=== PATIENT | female | born 1945 | race Caucasian/White ===

== ENCOUNTER → 2017-10-29 | Outpatient (CLI) | payer MEDICARE, OTHER ==
[~2017-10-29] MED LIST: CALC500T6 PO; CETI10CA8 PO; ESTR0.5T16 PO; HYDR-4225 PO; MEDR2.5T34 PO; METH500T6 PO; OMEG500C5 PO; OMEP-125 PO; SIMV10TA98 PO; VENL37.594 PO; [UNRECOGNIZED DRUG - CODE] PO
[2017-10-29 15:17] LABS: PLATELET COUNT, AUTOMATED 285 K/uL (150-450)
--- NOTE | 2017-10-29 15:32 | EKG ---
FACILITY: [facility] - [place], [place] PATIENT NAME: LAMONT TEJEDA : [id number] MR: [id number] V: [id number] EXAM DATE: ORDERING PHYSICIAN: RYLIE ROBLEDO TECHNOLOGIST: SIMIN Test Reason : PRE-OP Blood Pressure : / mmHG Vent. Rate : 088 BPM Atrial Rate : 088 BPM P-R Int : 188 ms QRS Dur : 086 ms QT Int : 368 ms P-R-T Axes : 066 033 060 degrees QTc Int : 445 ms Sinus rhythm Decreased R wave progression anteriorly Nonspecific ST findings anteriorly Confirmed by ROSEMARY RUTLEDGE ([id number]) on 10/29/2017 3:58:38 PM Referred By: VENKAT Confirmed By:ROSEMARY RUTLEDGE
[2017-10-29 15:33] LABS: INR 1.02
--- NOTE | 2017-10-29 16:13 | RADIOLOGY IMAGING REPORT ---
FACILITY: [facility] - [place] PATIENT NAME: Trang Hitchcock : 1945 MR: [id number] V: [id number] EXAM DATE: ORDERING PHYSICIAN: RLYIE ROBLEDO TECHNOLOGIST: [place] [facility] [place]ang Hitch[place] : 1945 Visit/Account:[id number] Date of Sevice: 10/29/2017 Exam type: CHEST PA AND LAT History: Cough Comparison: None. Findings: There is mild hyperinflation of the lung suazo. There is no evidence of focal infiltrates, pleural effusions or pulmonary edema. There is a small 5 mm nodular density projecting over the right lung b ase. Cardiac silhouette is normal in size. There is a gentle S-shaped scoliosis of the thoracolumba r spine IMPRESSION: 1. Hyperinflation lung suazo although no evidence of focal infiltrates There is a 5 mm nodular density projecting over the right lung base. Short-term interval follow-up c hest or chest CT recommended Report Dictated By: Michelle Rodriguez MD at 10/29/2017 4:06 PM Report E-Signed By: Michelle Rodriguez MD at 10/29/2017 4:08 PM WSN:[email or web address]
== END ==
LOC: LAB 14:40
PROVIDERS: ATTEND Family Medicine
DX: Z01.810 Encounter for preprocedural cardiovascular examination (principal); Z01.812 Encounter for preprocedural laboratory examination; Z01.818 Encounter for other preprocedural examination; E04.9 Nontoxic goiter, unspecified; R91.8 Other nonspecific abnormal finding of lung field
CPT/HCPCS: 36415; 71046; 82310; 82374; 82435; 82565; 82947; 84132; 84295; 84443; 84520; 85025; 85610; 85730; 93005

== ENCOUNTER 2017-11-14 19:37 | Emergency (ER) | payer MEDICARE, OTHER ==
[2017-11-14] MEDS ORDERED: CEFU500T10 PO (19:44)
[2017-11-14] MEDS ORDERED: HYDR-4309 PO (19:44)
--- NOTE | 2017-11-14 19:44 | ER Report ---
History and Physical Time Seen By MD: 19:42 HPI/ROS CHIEF COMPLAINT: Facial swelling, itching HISTORY OF PRESENT ILLNESS: 72-year-old female presents ambulatory to the ER with concerns of her facial swelling and itching. She underwent thyroid surgery yesterday. She reports her blood pressure was elevated. May give her several different medications to bring down her blood pressure. She thinks she is reacting to one of those. She took Benadryl 25 mg around 3 PM today with no improvement. She took another 50 mg of Benadryl approximately 45 minutes prior to her arrival here. She notes no throat swelling sensation. She denies any difficulty breathing. Her eyes are nearly swollen shut on arrival. Her facies flushed. She does have a history of allergies and takes hydroxyzine and Zyrtec frequently. REVIEW OF SYSTEMS: Respiratory: No cough, no dyspnea. Cardiovascular: No chest pain, no palpitations. Gastrointestinal: No vomiting, no abdominal pain. Musculoskeletal: No back pain. Allergies: Coded Allergies: Sulfa (Sulfonamide Antibiotics) (Verified Allergy, Unknown, UNKNOWN, ) adhesive (Verified Allergy, Unknown, 11/14/17) Home Meds Active Scripts Prednisone 10 Mg Tab (PREDNISONE 10 MG TAB) 10 Mg Tablet, 10 MG PO QDAY for prevent allergic reaction, #6 TAB 2 by mouth daily 2 days, then one tablet by mouth daily 2 days Prov:CASS GU DO 11/14/17 Reported Medications Hydrocodone Bit/Acetaminophen (NORCO 5-325 TABLET) 1 Each Tablet, 1-2 TAB PO Q4H Y for PAIN, TAB 11/14/17 Cefuroxime Axetil (CEFUROXIME) 500 Mg Tablet, 500 MG PO BID, #20 TAB 11/14/17 Hydroxyzine Hcl (HYDROXYZINE HCL) 25 Mg Tablet, 25 MG PO 06/01/17 Cetirizine Hcl (ZYRTEC) 10 Mg Capsule, 10 MG PO QDAY, CAPSULE 06/01/17 Simethicone (GAS RELIEF) 125 Mg Capsule, 125 MG PO DAILY, CAPSULE 01/26/16 Methylcellulose (FIBER) 500 Mg Tablet, 500 MG PO DAILY 01/26/16 [place]-3 Fatty Acids (FISH OIL) 500 Mg Capsule.dr, 1000 MG PO DAILY 01/26/16 Omeprazole (OMEPRAZOLE) 20 Mg Capsule.dr, 1 CAP PO QDAY, CAP 01/26/16 Calcium Carbonate (CALCIUM) 500 Mg Tablet, 500 MG PO BID 01/26/16 Simvastatin (SIMVASTATIN) 10 Mg Tablet, 10 MG PO HS, TAB 01/26/16 Medroxyprogesterone Acetate (MEDROXYPROGESTERONE ACETATE) 2.5 Mg Tablet, 2.5 MG PO DAILY 01/26/16 Estradiol (ESTRADIOL) 0.5 Mg Tablet, 0.5 MG PO DAILY 01/26/16 Discontinued Reported Medications Venlafaxine Hcl (EFFEXOR XR) 37.5 Mg Cap.er.24h, 37.5 MG PO QDAY 01/26/16 Reviewed Nurses Notes: Yes Old Medical Records Reviewed: Yes Hx Smoking: No Smoking Status: Former Smoker Hx Alcohol Use: Yes Constitutional Vital Sign - Last 24 Hours 11/14/17 19:44 Pulse 82 Resp 14 B/P (MAP) 147/94 Pulse Ox 92 O2 Delivery Room Air Physical Exam Vital signs stable, afebrile, pulse ox normal General Appearance: The patient is alert, has no immediate need for airway protection and no current signs of toxicity. Mild distress, facial flushing and edema. HEENT: Pupils equal and round no injection. TMs normal, oropharynx without edema. Respiratory: Chest is non tender, lungs are clear to auscultation. No wheezing or rails, there is flushing to the upper chest wall area and neck Cardiac: regular rate and rhythm Gastrointestinal: Abdomen is soft and non tender, no masses, bowel sounds normal. Musculoskeletal: Neck: Neck is supple and non tender. There is a surgical scar at the sternal notch with Steri-Strips intact. There is no induration or fluctuance to the local tissues. Extremities have full range of motion and are non tender. No edema Skin: No rashes or lesions. DIFFERENTIAL DIAGNOSIS: After history and physical exam differential diagnosis was considered for allergic reaction, anaphylaxis, angioedema, facial cellulitis , postoperative infection Medical Decision Making ED Course/Re-evaluation Clinical Indication for ER IV: Hydration, IV Access ED Course Patient was admitted to an examination room. H&P was done. The differential diagnoses was considered. On clinical examination. Patient has no oral pharyngeal swelling or edema. She does have facial flushing and erythema. She has facial edema. She is treated with IV Solu-Medrol and Pepcid by mouth. Patient observed for over one hour. She reports her symptoms are improving. Her facial edema and redness seem to be decreasing. She be discharged home on a prednisone taper 20 times to 102. She is advised Benadryl 3 times a day 25 mg as needed. Patient cautioned return to the ER for any worsening. Decision to Disposition Date: Nov 14, 2017 Decision to Disposition Time: 20:29 Depart Departure Latest Vital Signs Vital Signs Date Time Temp Pulse Resp B/P (MAP) Pulse Ox O2 Delivery O2 Flow Rate FiO2 11/14/17 19:44 82 14 147/94 92 Room Air Impression: Primary Impression: Allergic reaction Additional Impressions: Facial swelling Status post thyroid surgery Condition: Improved Disposition: HOME OR SELF-CARE New Scripts Prednisone 10 Mg Tab (PREDNISONE 10 MG TAB) 10 Mg Tablet 10 MG PO QDAY for prevent allergic reaction, #6 TAB 2 by mouth daily 2 days, then one tablet by mouth daily 2 days Prov: CASS GU DO 11/14/17 Patient Instructions: General Allergic Reaction (ED) Additional Instructions: Follow-up with your primary care or surgeon if unimproved in 2-3 days Return to the ER for any worsening Problem Qualifiers Primary Impression: Allergic reaction Encounter type: initial encounter Qualified Codes: T78.40XA - Allergy, unspecified, initial encounter CASS GU DO Nov 14, 2017 19:44
[2017-11-14] MEDS ORDERED: diphenhydrAMINE 50 MG/ML VIAL IVP ONE (19:50)
[2017-11-14] MEDS ORDERED: FAMOTIDINE 20 MG TAB PO ONE (19:50)
[2017-11-14] MEDS ORDERED: methylPREDNIS SUCC 125 MG/2ML IVP ONE (19:50)
[2017-11-14] MEDS ORDERED: PRED-1 PO (20:32)
[2017-11-14 20:45] VITALS: BP 124/82
[2017-11-16] MEDS ORDERED: METH125V13 IM (13:54)
== END 2017-11-14 20:50 | disposition home or self-care (01) ==
LOC: ER 20:00
DX: T78.40XA Allergy, unspecified, initial encounter (principal)
CPT/HCPCS: 96374; 99284; A9270; J2930

== ENCOUNTER 2017-11-17 19:09 | Observation (INO) | payer MEDICARE, OTHER ==
[~2017-11-17] VITALS: Ht 167.6 cm; Wt 76.2 kg
[~2017-11-17 19:09] MED LIST changes: +CEFU500T10 PO; +HYDR-4309 PO; +METH125V13 IM; +PRED-1 PO
--- NOTE | 2017-11-17 19:19 | ER Report ---
History and Physical Time Seen By MD: 19:19 HPI/ROS CHIEF COMPLAINT: Facial swelling HISTORY OF PRESENT ILLNESS: This is a 72-year-old female who presents to the emergency department for facial swelling. Patient was seen in the ED for possible allergic reaction on of last week and also seen by Dr. Roger for follow-up evaluation. Patient is status post thyroidectomy 4 days. Patient states she was given a dose of Ceftin and had allergic reaction. Patient ended up coming to the emergency department for concerns of an allergic reaction. Patient was given some Solu-Medrol and a short course of steroids. Patient was then seen in Dr. Roger's office [place] she still had facial swelling he did give her an injection of Solu-Medrol. Patient states that since then she has been getting worse and feels that she has developed an allergic reaction to the steroids as well. Patient states that she does have some fullness in her cheeks more on the right than the left she does have periorbital edema, as well as the right side of her face and into the right side of her neck. Patient denies chest pain or shortness of breath she does however state that she has had some wheezing and did use her MDI. There is no audible wheezing or signs of respiratory compromise at this time. The surgical site looks intact, no erythema or signs of infection. Steri-Strips are intact. Patient denies fevers, chills, nausea, vomiting, diarrhea. Patient states that she has taken Benadryl this morning and last dose of 25 mg Benadryl 4:00 this evening. REVIEW OF SYSTEMS: Constitutional: No fever, no chills. Eyes: No discharge. ENT: No sore throat. Cardiovascular: No chest pain, no palpitations. Respiratory: As above. Gastrointestinal: No abdominal pain, no vomiting. Genitourinary: No hematuria. Musculoskeletal: No back pain. Skin: As above. Neurological: No headache. Allergies: Coded Allergies: Sulfa (Sulfonamide Antibiotics) (Verified Allergy, Unknown, UNKNOWN, ) adhesive (Verified Allergy, Unknown, 11/14/17) cefuroxime (Verified Allergy, Unknown, facial swelling, 11/16/17) prednisone (Verified Allergy, Unknown, 11/17/17) Home Meds Active Scripts Prednisone 10 Mg Tab (PREDNISONE 10 MG TAB) 10 Mg Tablet, 10 MG PO QDAY for prevent allergic reaction, #6 TAB 2 by mouth daily 2 days, then one tablet by mouth daily 2 days Prov:BRITTANIECASS DO 11/14/17 Reported Medications Hydrocodone Bit/Acetaminophen (NORCO 5-325 TABLET) 1 Each Tablet, 1-2 TAB PO Q4H Y for PAIN, TAB 11/14/17 Cefuroxime Axetil (CEFUROXIME) 500 Mg Tablet, 500 MG PO BID, #20 TAB 11/14/17 Hydroxyzine Hcl (HYDROXYZINE HCL) 25 Mg Tablet, 25 MG PO 06/01/17 Cetirizine Hcl (ZYRTEC) 10 Mg Capsule, 10 MG PO QDAY, CAPSULE 06/01/17 Simethicone (GAS RELIEF) 125 Mg Capsule, 125 MG PO DAILY, CAPSULE 01/26/16 Methylcellulose (FIBER) 500 Mg Tablet, 500 MG PO DAILY 01/26/16 [place]-3 Fatty Acids (FISH OIL) 500 Mg Capsule.dr, 1000 MG PO DAILY 01/26/16 Omeprazole (OMEPRAZOLE) 20 Mg Capsule.dr, 1 CAP PO QDAY, CAP 01/26/16 Calcium Carbonate (CALCIUM) 500 Mg Tablet, 500 MG PO BID 01/26/16 Simvastatin (SIMVASTATIN) 10 Mg Tablet, 10 MG PO HS, TAB 01/26/16 Medroxyprogesterone Acetate (MEDROXYPROGESTERONE ACETATE) 2.5 Mg Tablet, 2.5 MG PO DAILY 01/26/16 Estradiol (ESTRADIOL) 0.5 Mg Tablet, 0.5 MG PO DAILY 01/26/16 Discontinued Reported Medications Venlafaxine Hcl (EFFEXOR XR) 37.5 Mg Cap.er.24h, 37.5 MG PO QDAY 01/26/16 Past Medical/Surgical History Burns has a past medical and surgical history of hypercholesterolemia, GERD, ankle fracture, wears glasses, hard of hearing, appendectomy, C-sections 2, anxiety, depression, tubal ligation, bunionectomy. Reviewed Nurses Notes: Yes Hx Smoking: No Smoking Status: Former Smoker Hx Substance Use Disorder: No Hx Alcohol Use: Yes Constitutional Vital Sign - Last 24 Hours 11/17/17 11/17/17 11/17/17 11/17/17 19:13 19:23 19:24 19:39 Temp 98.4 Pulse 78 81 77 Resp 16 B/P (MAP) 167/100 (122) 167/100 Pulse Ox 95 94 95 O2 Delivery Room Air 11/17/17 11/17/17 11/17/17 11/17/17 19:54 20:09 20:19 20:24 Pulse 71 75 75 B/P (MAP) 159/92 (114) Pulse Ox 96 98 96 11/17/17 11/17/17 11/17/17 11/17/17 20:29 20:34 20:40 20:49 Pulse 72 68 B/P (MAP) 165/94 (117) Pulse Ox 96 97 95 11/17/17 11/17/17 11/17/17 11/17/17 21:16 21:19 21:20 21:34 Pulse 74 68 B/P (MAP) 172/98 (122) 176/94 (121) Pulse Ox 97 95 Physical Exam General Appearance: The patient is alert, has no immediate need for airway protection and no signs of toxicity. Eyes: Pupils equal and round no pallor or injection. ENT, Mouth: Mucous membranes are moist. Fullness to the tongue, mild erythema to soft palate and oropharynx, uvula midline. No drooling. No signs of occlusion. Respiratory: There are no retractions, lungs are clear to auscultation, no wheezing or stridorous sounds. Cardiovascular: Regular rate and rhythm, no murmurs, clicks or rubs. Gastrointestinal: Abdomen is soft and non tender, no masses, bowel sounds normal. Neurological: Alert and oriented X4, moving all extremities, no focal neuro deficits, following all commands. Skin: Warm and dry, no rashes. Crepitus and popping to both sides of the neck, more on the right neck and face. Periorbital edema, more notable on the right. Surgical site is intact, no drainage, covered by steri strips. Musculoskeletal: Neck is supple non tender. Extremities are nontender, nonswollen and have full range of motion. DIFFERENTIAL DIAGNOSIS: After history and physical exam differential diagnosis was considered for but not limited to angioedema, allergic reaction, postsurgical complication and cellulitis. Medical Decision Making Data Points Result Diagram: 11/17/17200111/17/172001 Laboratory Hematology Test 11/17/17 20:02 Red Blood Count 5.16 M/uL (4.17-5.56) Mean Corpuscular Volume 87.1 fL (80.0-96.0) Mean Corpuscular Hemoglobin 30.0 pg (26.0-33.0) Mean Corpuscular Hemoglobin Concent 34.5 g/dL (32.0-36.0) Red Cell Distribution Width 13.7 % (11.5-14.5) Mean Platelet Volume 7.9 fL (7.2-11.1) Neutrophils (%) (Auto) 78.5 % (39.4-72.5) Lymphocytes (%) (Auto) 12.7 % (17.6-49.6) Monocytes (%) (Auto) 8.3 % (4.1-12.4) Eosinophils (%) (Auto) 0.1 % (0.4-6.7) Basophils (%) (Auto) 0.4 % (0.3-1.4) Nucleated RBC Relative Count (auto) 0.0 /100WBC Neutrophils # (Auto) 10.0 K/uL (2.0-7.4) Lymphocytes # (Auto) 1.6 K/uL (1.3-3.6) Monocytes # (Auto) 1.1 K/uL (0.3-1.0) Eosinophils # (Auto) 0.0 K/uL (0.0-0.5) Basophils # (Auto) 0.0 K/uL (0.0-0.1) Nucleated RBC Absolute Count (auto) 0.00 K/uL Sodium Level 141 mmol/L (137-145) Potassium Level 4.1 mmol/L (3.5-5.0) Chloride Level 100 mmol/L (98-107) Carbon Dioxide Level 27 mmol/L (22-31) Blood Urea Nitrogen 19 mg/dl (7-18) Creatinine 1.00 mg/dl (0.52-1.04) Glomerular Filtration Rate Calc 54.8 Random Glucose 113 mg/dl (75-110) Calcium Level 9.4 mg/dl (8.4-10.2) Total Bilirubin 0.4 mg/dl (0.2-1.3) Aspartate Amino Transf (AST/SGOT) 27 U/L (0-35) Alanine Aminotransferase (ALT/SGPT) 33 U/L (0-56) Alkaline Phosphatase 63 U/L (0-126) Total Protein 7.2 gm/dl (6.3-8.2) Albumin 3.9 g/dl (3.5-5.0) Chemistry Test 11/17/17 20:02 White Blood Count 12.7 k/uL (4.5-11.0) Red Blood Count 5.16 M/uL (4.17-5.56) Hemoglobin 15.5 g/dL (12.0-16.0) Hematocrit 45.0 % (34.0-47.0) Mean Corpuscular Volume 87.1 fL (80.0-96.0) Mean Corpuscular Hemoglobin 30.0 pg (26.0-33.0) Mean Corpuscular Hemoglobin Concent 34.5 g/dL (32.0-36.0) Red Cell Distribution Width 13.7 % (11.5-14.5) Platelet Count 322 K/uL (150-450) Mean Platelet Volume 7.9 fL (7.2-11.1) Neutrophils (%) (Auto) 78.5 % (39.4-72.5) Lymphocytes (%) (Auto) 12.7 % (17.6-49.6) Monocytes (%) (Auto) 8.3 % (4.1-12.4) Eosinophils (%) (Auto) 0.1 % (0.4-6.7) Basophils (%) (Auto) 0.4 % (0.3-1.4) Nucleated RBC Relative Count (auto) 0.0 /100WBC Neutrophils # (Auto) 10.0 K/uL (2.0-7.4) Lymphocytes # (Auto) 1.6 K/uL (1.3-3.6) Monocytes # (Auto) 1.1 K/uL (0.3-1.0) Eosinophils # (Auto) 0.0 K/uL (0.0-0.5) Basophils # (Auto) 0.0 K/uL (0.0-0.1) Nucleated RBC Absolute Count (auto) 0.00 K/uL Glomerular Filtration Rate Calc 54.8 Calcium Level 9.4 mg/dl (8.4-10.2) Total Bilirubin 0.4 mg/dl (0.2-1.3) Aspartate Amino Transf (AST/SGOT) 27 U/L (0-35) Alanine Aminotransferase (ALT/SGPT) 33 U/L (0-56) Alkaline Phosphatase 63 U/L (0-126) Total Protein 7.2 gm/dl (6.3-8.2) Albumin 3.9 g/dl (3.5-5.0) EKG/Imaging Imaging Location: [facility] Patient: Trang Hitchcock : 1945 Visit/Account:[id number] Date of Sevice: 11/17/2017 CHEST PA AND LATERAL 11/17/2017 9:30 PM. INDICATION: Possible pneumothorax. COMPARISON: Same-day neck CT. FINDINGS: Lungs are overall hyperexpanded. No definite suspicious focal consolidation. No apparent pleural effusion. No definite pneumothorax. Extensive pneumomediastinum as well as soft tissue emphysema in the neck and chest. IMPRESSION: 1. No radiographically apparent pneumothorax. 2. Pneumomediastinum and extensive soft tissue emphysema in the chest and neck. Given reported recent thyroidectomy, tracheal injury is a consideration. 3. Chronic hyperexpansion. Dr. Bautista discussed this case with SHAY GONZALEZ on 11/17/2017 10:09 PM. Report Dictated By: Flaco Bautista MD at 11/17/2017 9:58 PM Report E-Signed By: Flaco Bautista MD at 11/17/2017 10:11 PM WSN:[id number] Location: [facility] Patient: Trang Hitchcock : 1945 Visit/Account:[id number] Date of Sevice: 11/17/2017 ADDENDUM #1 Upon further review. There may be a small rent in the anterior left trachea, in the area of the previous thyroidectomy. This could be the cause for the pneumomediastinum. This is seen on image #58 on series 2. The small apical pneumothoraces could be overlying pneumomediastinum and not actual pneumothoraces however this is not definitive. These findings were discussed with Shay Gonzalez by Dr. Archer. Report Dictated By: Andrew Martinez at 11/17/2017 10:15 PM Report E-Signed By: Andrew Martinez at 11/17/2017 10:[address] OF THE NECK WITH CONTRAST INDICATION: Neck and face swelling. Status post thyroidectomy. COMPARISON: non available TECHNIQUE: Axial CT images was obtained through the neck soft tissues after administration of 75 mL Isovue-370 IV contrast. Reformatted coronal and sagittal images were reviewed. One of the following dose optimization techniques was utilized in the performance of this exam: Automated exposure control; adjustment of the mA and/ or kV according to the patient's size; or use of an iterative reconstruction technique. Specific details can be referenced in the facility's radiology CT exam operational policy. FINDINGS: There is significant diffuse subcutaneous air seen throughout the neck from the apex of the chest to the orbits. Small amount of air seen within the right orbit there is significant amount of pneumomediastinum seen in the visualized upper mediastinum. The visualized lungs show small bilateral pneumothoraces. Soft tissues of the neck show no other focal abnormality such as fluid collections or masses. The retropharyngeal soft tissues are unremarkable besides the subcutaneous air. The visualized brain is unremarkable. The vasculature is unremarkable. Bony structures show no acute abnormality or discrete lesions. IMPRESSION: 1. A severe amount of subcutaneous air throughout the neck extending from the upper chest to the level of the orbits with small amount in the right orbit. There is also pneumomediastinum and small bilateral pneumothoraces in the apex of the lungs. I called report to SHAY GONZALEZ at 11/17/2017 9:28 PM. Report Dictated By: Andrew Martinez at 11/17/2017 9:19 PM Report E-Signed By: Andrew Martinez at 11/17/2017 9:30 PM WSN:[id number] ED Course/Re-evaluation Clinical Indication for ER IV: IV Access ED Course The patient was admitted to room. A history physical were obtained. Differential diagnoses were considered. An IV was started. A CBC, CMP were obtained. Lab studies unremarkable. 25 mg IV Benadryl and 20 mg IV famotidine were given. I did offer the patient some slight Medrol however she states she is concerned that the steroids have caused her symptoms to worsen over the last several days and declined the slight Medrol. A CT of the neck was obtained. CT of the neck is showing a severe amount of subcutaneous air throughout the neck extending from the upper chest to the level of the orbits with small amount in the right orbit. There is also a pneumomediastinum There is an addendum to the initial CT saying that there may be a small rent in the anterior left trachea, in the area of the previous thyroidectomy. I did review these results with the patient and her . I did a two-view chest x-ray as well I did get a call from the radiologist that said he was not convinced that the patient had bilateral pneumothoraces he thinks that this is a large pneumomediastinum. I did review these results with the patient and her . I did explain to them that this is concerning and I'll contact Dr. Anaya as noted below. The patient has been admitted to a surgical bed for pneumomediastinum, subcutaneous air, status post thyroidectomy. 11/17/2017 10:28:55 pm his peak with Dr. Anaya regarding the patient's CT results he is going to come in and talk to the patient and evaluate for possible admission. I did review this with the patient. 11/17/2017 10:41:[address] Anaya is here for patient evaluation. 11/17/2017 11:08:[address] Anaya has agreed to admit the patient to the hospital. Patient is in agreement with this. Decision to Disposition Date: Nov 17, 2017 Decision to Disposition Time: 23:08 Depart Departure Latest Vital Signs Vital Signs Date Time Temp Pulse Resp B/P (MAP) Pulse Ox O2 Delivery O2 Flow Rate FiO2 11/17/17 21:34 68 95 11/17/17 21:20 176/94 (121) 11/17/17 19:23 98.4 16 Room Air Impression: Primary Impression: Pneumomediastinum Additional Impressions: Subcutaneous air Periorbital edema Condition: Improved Disposition: Admitted from ER Problem Qualifiers Additional Impressions: Subcutaneous air Encounter type: initial encounter Qualified Codes: T79.7XXA - Traumatic subcutaneous emphysema, initial encounter SHAY GONZALEZP-BC Nov 17, 2017 19:19
[2017-11-17] MEDS ORDERED: FAMOTIDINE(*) 20MG/50ML PREMIX 50 ML IVPB ONE (20:00)
[2017-11-17] MEDS ORDERED: diphenhydrAMINE 50 MG/ML VIAL IVP ONE (20:00)
[2017-11-17] MEDS ORDERED: IOPAMIDOL 76% 75 ML INFUS BTL 75 ML ONE (20:07)
[2017-11-17 20:10] LABS: PLATELET COUNT, AUTOMATED 322 K/uL (150-450)
--- NOTE | 2017-11-17 21:34 | RADIOLOGY IMAGING REPORT ---
FACILITY: [facility] [place] PATIENT NAME: Trang Hitchcock : 1945 MR: [id number] V: [id number] EXAM DATE: ORDERING PHYSICIAN: SHAY GONZALEZ TECHNOLOGIST: Location: [facility] Patient: Trang Hitchcock : 1945 Visit/Account:[id number] Date of Sevice: 11/17/2017 ADDENDUM #1 Upon further review. There may be a small rent in the anterior left trachea, in the area of the previ ous thyroidectomy. This could be the cause for the pneumomediastinum. This is seen on image #58 on se enrike 2. The small apical pneumothoraces could be overlying pneumomediastinum and not actual pneumotho races however this is not definitive. These findings were discussed with Shya Gonzalez by Dr. Archer. Report Dictated By: Andrew Martinez at 11/17/2017 10:15 PM Report E-Signed By: Andrew Martinez at 11/17/2017 10:[address] OF THE NECK WITH CONTRAST INDICATION: Neck and face swelling. Status post thyroidectomy. COMPARISON: non available TECHNIQUE: Axial CT images was obtained through the neck soft tissues after administration of 75 mL I sovue-370 IV contrast. Reformatted coronal and sagittal images were reviewed. One of the following dose optimization techniques was utilized in the performance of this exam: Autom ated exposure control; adjustment of the mA and/or kV according to the patient's size; or use of an i terative reconstruction technique. Specific details can be referenced in the facility's radiology C T exam operational policy. FINDINGS: There is significant diffuse subcutaneous air seen throughout the neck from the apex of the chest to the orbits. Small amount of air seen within the right orbit there is significant amount of pneumomedi astinum seen in the visualized upper mediastinum. The visualized lungs show small bilateral pneumotho races. Soft tissues of the neck show no other focal abnormality such as fluid collections or masses. The ret ropharyngeal soft tissues are unremarkable besides the subcutaneous air. The visualized brain is unre markable. The vasculature is unremarkable. Bony structures show no acute abnormality or discrete lesi ons. IMPRESSION: 1. A severe amount of subcutaneous air throughout the neck extending from the upper chest to the leve l of the orbits with small amount in the right orbit. There is also pneumomediastinum and small bilat eral pneumothoraces in the apex of the lungs. I called report to SHAY GONZALEZ at 11/17/2017 9:28 PM. Report Dictated By: Andrew Martinez at 11/17/2017 9:19 PM Report E-Signed By: Andrew Martinez at 11/17/2017 9:30 PM WSN:[id number]
--- NOTE | 2017-11-17 22:16 | RADIOLOGY IMAGING REPORT ---
FACILITY: [facility] PATIENT NAME: Trang Hitchcock : 1945 MR: [id number] V: [id number] EXAM DATE: ORDERING PHYSICIAN: JAMES GONZALEZ TECHNOLOGIST: Location: [facility] Patient: Trang Hitchcock : 1945 Visit/Account:[id number] Date of Sevice: 11/17/2017 CHEST PA AND LATERAL 11/17/2017 9:30 PM. INDICATION: Possible pneumothorax. COMPARISON: Same-day neck CT. FINDINGS: Lungs are overall hyperexpanded. No definite suspicious focal consolidation. No apparent pleural effusion. No definite pneumothorax. Extensive pneumomediastinum as well as soft tissue emph ysema in the neck and chest. IMPRESSION: 1. No radiographically apparent pneumothorax. 2. Pneumomediastinum and extensive soft tissue emphysema in the chest and neck. Given reported rece nt thyroidectomy, tracheal injury is a consideration. 3. Chronic hyperexpansion. Dr. Bautista discussed this case with JAMES GONZALEZ on 11/17/2017 10:09 PM. Report Dictated By: Flaco Bautista MD at 11/17/2017 9:58 PM Report E-Signed By: Flaco Bautista MD at 11/17/2017 10:11 PM WSN:[email or web address]
--- NOTE | 2017-11-17 23:33 | Post Operative Progress Note ---
Post Operative Progress Note Date: Nov 17, 2017 Time: 23:32 Surgeon: ashleigh Anesthesia: local Pre-Op Diagnosis: subcutaneous emphysema secondary to tracheal injury Post-Op Diagnosis: same Procedure(s): wound exploration ELIDA FAYE MD Nov 17, 2017 23:33
--- NOTE | 2017-11-17 23:43 | General Surgery 1 H&P ---
History of Present Illness Chief Complaint facial swelling History of Present Illness 72 yo female who underwent a thyroidectomy 4 days ago. post op she had some sensation of difficulty breathing and spent the night. she was then discharged but subsequently developed increasing swelling in the neck and face. it got quite a bit more pronounced today and she returned to the ed. ct suggest a tracheal injury on the left with subcutaneous and mediastinal emphysema. pt has no significant pain. no shortness of breath. no difficulty swallowing. History Other Past Surgeries: thyroidectomy, appendectomy and c section Home Meds Active Scripts Prednisone 10 Mg Tab (PREDNISONE 10 MG TAB) 10 Mg Tablet, 10 MG PO QDAY for prevent allergic reaction, #6 TAB 2 by mouth daily 2 days, then one tablet by mouth daily 2 days Prov:CASS GU DO 11/14/17 Reported Medications Hydrocodone Bit/Acetaminophen (NORCO 5-325 TABLET) 1 Each Tablet, 1-2 TAB PO Q4H Y for PAIN, TAB 11/14/17 Cefuroxime Axetil (CEFUROXIME) 500 Mg Tablet, 500 MG PO BID, #20 TAB 11/14/17 Hydroxyzine Hcl (HYDROXYZINE HCL) 25 Mg Tablet, 25 MG PO 06/01/17 Cetirizine Hcl (ZYRTEC) 10 Mg Capsule, 10 MG PO QDAY, CAPSULE 06/01/17 Simethicone (GAS RELIEF) 125 Mg Capsule, 125 MG PO DAILY, CAPSULE 01/26/16 Methylcellulose (FIBER) 500 Mg Tablet, 500 MG PO DAILY 01/26/16 [place]-3 Fatty Acids (FISH OIL) 500 Mg Capsule.dr, 1000 MG PO DAILY 01/26/16 Omeprazole (OMEPRAZOLE) 20 Mg Capsule.dr, 1 CAP PO QDAY, CAP 01/26/16 Calcium Carbonate (CALCIUM) 500 Mg Tablet, 500 MG PO BID 01/26/16 Simvastatin (SIMVASTATIN) 10 Mg Tablet, 10 MG PO HS, TAB 01/26/16 Medroxyprogesterone Acetate (MEDROXYPROGESTERONE ACETATE) 2.5 Mg Tablet, 2.5 MG PO DAILY 01/26/16 Estradiol (ESTRADIOL) 0.5 Mg Tablet, 0.5 MG PO DAILY 01/26/16 Discontinued Reported Medications Venlafaxine Hcl (EFFEXOR XR) 37.5 Mg Cap.er.24h, 37.5 MG PO QDAY 01/26/16 Allergies: Coded Allergies: Sulfa (Sulfonamide Antibiotics) (Verified Allergy, Unknown, UNKNOWN, ) adhesive (Verified Allergy, Unknown, 11/14/17) cefuroxime (Verified Allergy, Unknown, facial swelling, 11/16/17) prednisone (Verified Allergy, Unknown, 11/17/17) Family History: FH: heart failure FATHER, , Age:69 FH: hypertension MOTHER, , Age:85 Review of Systems History of Hypertension?: No History of Diabetes?: No History of DVT?: No Obstructive Sleep Apnea?: No History of Liver Disease?: No History of Kidney Disease?: No Constitutional: No Fever, No Weight Loss, No Weight Gain, No Chills, No Night Sweats, No Other Respiratory: Denies Shortness of Breath, Denies Other Cardiovascular: Denies Chest Pain, Denies Other : Denies Dysuria, Denies Other Exam Vital Signs Date Time Temp Pulse Resp B/P (MAP) Pulse Ox O2 Delivery O2 Flow Rate FiO2 11/17/17 23:00 187/111 (136) 11/17/17 22:54 74 94 11/17/17 19:23 98.4 16 Room Air General Appearance: Alert, Awake, No Acute Distress ENT: Other (she has facial swelling with subcutaneous emphysema into the eyelids) Neck: Other (swollen with subcutaneous emphysema. no erythema) Medical Decision Making Data Points Result Diagram: 11/17/17200111/17/172001 Assessment and Plan Problems: (1) Subcutaneous air Status: Acute Assessment & Plan: she appears to have subq and pneumomediastinum secondary to tracheal injury. discussed options. open wound and let air leak out and have it close secondarily. explore wound under general and try to identify and suture wound closed. or transfer her. she opts for opening wound and letting wound heal secondarily. Copies to: KALINA ESPARZA JR, MD; ELIDA FAYE MD Venous Thromboembolism Antithrombotics Is Pt On Any Antithrombotics?: No Problem Qualifiers (1) Subcutaneous air: Encounter type: initial encounter Qualified Codes: T79.7XXA - Traumatic subcutaneous emphysema, initial encounter ELIDA FAYE MD Nov 17, 2017 23:43
[2017-11-17] MEDS ORDERED: FLUSH 10 ML SYR IVP PRN (23:45)
[2017-11-17] MEDS ORDERED: ACETAMINOPHEN 325 MG TAB PO PRN (23:45)
[2017-11-17] MEDS ORDERED: LISD30PT PO (23:56)
[2017-11-18 00:12] VITALS: BP 160/110
[2017-11-18] MEDS ORDERED: CALC-634 PO (01:07)
[2017-11-18 02:49] VITALS: BP 154/82
--- NOTE | 2017-11-18 03:59 | OPERATIVE REPORT 1 ---
EVENT DATE: November 17, 2017 SURGEON: Wilton Anaya MD ANESTHESIA: Local. PREOPERATIVE DIAGNOSIS Tracheal injury with subcutaneous emphysema. POSTOPERATIVE DIAGNOSIS Tracheal injury with subcutaneous emphysema. PROCEDURE PERFORMED Wound exploration. PROCEDURE Patient was placed in the reclining position with her head hyperextended. The Steri-strips in the previously placed suture were removed. The area was then prepped and draped in sterile fashion. Skin was anesthetized with 1% Xylocaine with epinephrine. The skin was teased open. The subcutaneous tissue was opened with scissors. We then had a bales of air. We then opened the strap muscles in the midline, and there was an air return after that. We had the wound open down to the level of the trachea. At this point, the procedure was terminated. We placed a gauze over the open wound and taped it in position. MTDJelani
[2017-11-18 08:16] VITALS: BP 161/94
--- NOTE | 2017-11-18 08:55 | General Surgery Progress Note ---
Subjective Progress Notes Subjective no complaints of pain. she can hear the air leak Physical Exam Vital Signs Date Time Temp Pulse Resp B/P (MAP) Pulse Ox O2 Delivery O2 Flow Rate FiO2 11/18/17 08:16 98.4 81 18 161/94 (116) 91 Room Air General Appearance: Alert, Awake Neck: Other (wound open, swelling in neck and face decreased) Result Diagram: 11/17/17200111/17/172001 Assessment and Plan Problems: (1) Subcutaneous air Status: Acute Assessment & Plan: she appears to have subq and pneumomediastinum secondary to tracheal injury. discussed options. open wound and let air leak out and have it close secondarily. explore wound under general and try to identify and suture wound closed. or transfer her. she opts for opening wound and letting wound heal secondarily. 11/18/17 doing well. hopefully home later today Exam Sepsis Risk: No Definite Risk Problem Qualifiers (1) Subcutaneous air: Encounter type: initial encounter Qualified Codes: T79.7XXA - Traumatic subcutaneous emphysema, initial encounter ELIDA FAYE MD Nov 18, 2017 08:55
[2017-11-18] MEDS ORDERED: MEDROXYPROGESTERONE ACETATE PO SCH (09:00)
[2017-11-18] MEDS ORDERED: hydrOXYzine 25 MG TAB PO SCH (09:00)
[2017-11-18] MEDS: CEPHALEXIN MONO 500 MG CAP PO SCH ×2 (09:26→14:43)
[2017-11-18 13:02] VITALS: Ht 167.6 cm; Wt 76.2 kg
[2017-11-18 13:38] VITALS: BP 156/92
--- NOTE | 2017-11-18 16:40 | General Surgery Progress Note ---
Subjective Progress Notes Subjective no complaints of pain or shortness of breath Physical Exam Vital Signs Date Time Temp Pulse Resp B/P (MAP) Pulse Ox O2 Delivery O2 Flow Rate FiO2 11/18/17 13:38 98.5 16 156/92 (113) Room Air 11/18/17 13:38 93 11/18/17 08:16 81 Intake and Output 11/19/17 07:00 Intake Total 200 ml Balance 200 ml Intake Oral 200 ml # Voids 3 General Appearance: Alert, Awake, No Acute Distress Neck: Other (a little less swelling) Result Diagram: 11/17/17200111/17/172001 Assessment and Plan Problems: (1) Subcutaneous air Status: Acute Assessment & Plan: she appears to have subq and pneumomediastinum secondary to tracheal injury. discussed options. open wound and let air leak out and have it close secondarily. explore wound under general and try to identify and suture wound closed. or transfer her. she opts for opening wound and letting wound heal secondarily. 11/18/17 doing well. hopefully home later today 11/18/17 doing well home Exam Sepsis Risk: No Definite Risk Problem Qualifiers (1) Subcutaneous air: Encounter type: initial encounter Qualified Codes: T79.7XXA - Traumatic subcutaneous emphysema, initial encounter ELIDA FAYE MD Nov 18, 2017 16:40
--- NOTE | 2017-11-18 16:41 | Short(Outpt) Discharge Summary ---
Discharge Summary Reason for Hosp/Final Diag: (1) Subcutaneous air Status: Acute Hospital Course & Plan: she appears to have subq and pneumomediastinum secondary to tracheal injury. discussed options. open wound and let air leak out and have it close secondarily. explore wound under general and try to identify and suture wound closed. or transfer her. she opts for opening wound and letting wound heal secondarily. 11/18/17 doing well. hopefully home later today 11/18/17 doing well home Departure Discharge to: Home Discharge Instructions Home Meds Reported Medications Calcium Carbonate/Vitamin D3 (CALCIUM 600 + VIT D 400 TABLET) 1 Each Tablet, 1 EACH PO 11/18/17 Lisdexamfetamine Dimesylate (VYVANSE) 30 Mg Capsule, 60 MG PO QDAY, CAPSULE 11/17/17 Hydroxyzine Hcl (HYDROXYZINE HCL) 25 Mg Tablet, 25 MG PO 06/01/17 Cetirizine Hcl (ZYRTEC) 10 Mg Capsule, 10 MG PO QDAY, CAPSULE 06/01/17 Methylcellulose (FIBER) 500 Mg Tablet, 500 MG PO DAILY 01/26/16 [place]-3 Fatty Acids (FISH OIL) 500 Mg Capsule.dr, 1000 MG PO DAILY 01/26/16 Omeprazole (OMEPRAZOLE) 20 Mg Capsule.dr, 1 CAP PO QDAY, CAP 01/26/16 Simvastatin (SIMVASTATIN) 10 Mg Tablet, 10 MG PO HS, TAB 01/26/16 Medroxyprogesterone Acetate (MEDROXYPROGESTERONE ACETATE) 2.5 Mg Tablet, 2.5 MG PO DAILY 01/26/16 Estradiol (ESTRADIOL) 0.5 Mg Tablet, 0.5 MG PO DAILY 01/26/16 Discontinued Reported Medications Calcium Carbonate (CALCIUM) 500 Mg Tablet, 500 MG PO BID 01/26/16 Hydrocodone Bit/Acetaminophen (NORCO 5-325 TABLET) 1 Each Tablet, 1-2 TAB PO Q4H Y for PAIN, TAB 11/14/17 Cefuroxime Axetil (CEFUROXIME) 500 Mg Tablet, 500 MG PO BID, #20 TAB 11/14/17 Simethicone (GAS RELIEF) 125 Mg Capsule, 125 MG PO DAILY, CAPSULE 01/26/16 Venlafaxine Hcl (EFFEXOR XR) 37.5 Mg Cap.er.24h, 37.5 MG PO QDAY 01/26/16 Discontinued Scripts Prednisone 10 Mg Tab (PREDNISONE 10 MG TAB) 10 Mg Tablet, 10 MG PO QDAY for prevent allergic reaction, #6 TAB 2 by mouth daily 2 days, then one tablet by mouth daily 2 days Prov:CASS GU DO 11/14/17 Diet: Regular Activity: As Tolerated Special Instructions: change bandage bid. follow up with dr scott as previously scheduled. call wi [phone] if any problems Problem Qualifiers (1) Subcutaneous air: Encounter type: initial encounter Qualified Codes: T79.7XXA - Traumatic subcutaneous emphysema, initial encounter ELIDA FAYE MD Nov 18, 2017 16:41
[2017-11-26] MEDS ORDERED: LEVO100T95 PO (13:33)
== END 2017-11-18 16:40 | disposition home or self-care (01) ==
LOC: ER 19:23 → INTOOBSV 23:21 → MED 23:21
PROVIDERS: ADMIT Surgery; ATTEND Surgery
DX: T79.7XXA Traumatic subcutaneous emphysema, initial encounter (principal)
CPT/HCPCS: 31899; 70491; 71046; 85025; 96365; 96375; 99285; A9270; G0378; J1200; J3490; Q9967; 82040; 82247; 82310; 82374; 82435; 82565; 82947; 84075; 84132; 84155; 84295; 84450; 84460; 84520

== ENCOUNTER → 2017-12-21 | Outpatient (CLI) | payer MEDICARE, OTHER ==
[2017-11-18 13:02] VITALS: BMI 27.1
[~2017-12-21] MED LIST changes: +AMOX-559 PO; +CALC-634 PO; +LEVO100T95 PO; +LEVO125T77 PO; +LISD30PT PO
== END ==
LOC: LAB 15:24
PROVIDERS: ATTEND Otolaryngology
DX: C73 Malignant neoplasm of thyroid gland (principal)
CPT/HCPCS: 36415; 84436; 84443

== ENCOUNTER → 2018-01-21 | Outpatient (CLI) | payer MEDICARE, OTHER ==
[2017-11-18 13:02] VITALS: BMI 27.1
== END ==
LOC: LAB 12:25
PROVIDERS: ATTEND Otolaryngology
DX: E03.9 Hypothyroidism, unspecified (principal)
CPT/HCPCS: 36415; 84443

== ENCOUNTER → 2018-01-24 | Outpatient (CLI) | payer MEDICARE, OTHER ==
[2017-11-18 13:02] VITALS: BMI 27.1
--- NOTE | 2018-01-24 15:33 | RADIOLOGY IMAGING REPORT ---
FACILITY: [facility] [place] PATIENT NAME: Trang Hitchcock : 1945 MR: [id number] V: [id number] EXAM DATE: ORDERING PHYSICIAN: RYLIE ROBLEDO TECHNOLOGIST: Location: [facility] [place] Patient: Trang Hitchcock : 1945 Visit/Account:[id number] Date of Sevice: 01/24/2018 Exam type: CHEST PA AND LAT History: Follow-up pneumomediastinum Comparison: November 17, 2017. Findings: Previously noted pneumomediastinum has completely resolved. There is no evidence of a pneumothorax. There is mild hyperexpansion of the lung suazo There is no evidence of pulmonary consolidation pleu ral effusions or overt pulmonary edema. Cardiac silhouette is normal in size. There is an S-shaped scoliosis of the thoracolumbar spine IMPRESSION: 1. Previous noted pneumomediastinum has resolved with no evidence of acute pulmonary consolidation There is mild hyperexpansion of the lung suazo Report Dictated By: Michelle Rodriguez MD at 01/24/2018 3:28 PM Report E-Signed By: Michelle Rodriguez MD at 01/24/2018 3:29 PM WSN:[email or web address]
== END ==
LOC: RAD 01-21 12:28
PROVIDERS: ATTEND Family Medicine
DX: R91.8 Other nonspecific abnormal finding of lung field (principal)
CPT/HCPCS: 71046

== ENCOUNTER → 2018-03-04 | Outpatient (CLI) | payer MEDICARE, OTHER ==
[2017-11-18 13:02] VITALS: BMI 27.1
[~2018-03-04] MED LIST changes: +LEVO137T23 PO
== END ==
LOC: LAB 03-02 14:05
PROVIDERS: ATTEND Otolaryngology
DX: E89.0 Postprocedural hypothyroidism (principal)
CPT/HCPCS: 36415; 84443

== ENCOUNTER 2018-04-01 02:21 | Day surgery (SDC) | payer MEDICARE, OTHER ==
[2017-11-18 13:02] VITALS: Ht 170.2 cm; Wt 73.0 kg
[~2018-04-01] VITALS: Ht 170.2 cm; Wt 73.0 kg
[~2018-04-01 02:21] MED LIST changes: +LEVO150T78 PO; +LUTE1CAP4 PO; +MAGN100T PO; +SIME125T3 PO
[2018-04-01 07:41] VITALS: BP 125/92
[2018-04-01] MEDS ORDERED: FAMOTIDINE 20 MG TAB PO ONE (08:00)
[2018-04-01] MEDS ORDERED: ceFAZolin(*) 2GM/D5W 50ML 50 ML IVPB ONE (08:10)
[2018-04-01] MEDS ORDERED: LIDOCAINE/SOD BICARB 8.4% SYR ID ONE (08:10)
[2018-04-01] MEDS ORDERED: MIDAZOLAM 2 MG/2 ML VIAL IVP PRN (08:10)
[2018-04-01] MEDS ORDERED: NORMOSOL R SOLN(*) 1000 ML BAG 1,000 ML IV PRN (08:10)
[2018-04-01] MEDS ORDERED: BACITRACIN OINT 15 GM TUBE TP ONE (09:21)
[2018-04-01] MEDS ORDERED: BUPIV/EPI 0.25% 1:200,000 50ML INFIL ONE (09:21)
[2018-04-01] MEDS ORDERED: fentaNYL CITR 100 MCG/2 ML AMP ONE ×2 (09:54→10:31)
[2018-04-01] MEDS ORDERED: DEXAMETHASONE SOD PHOS 10MG/ML ONE (10:16)
[2018-04-01] MEDS ORDERED: ONDANSETRON 4 MG/2 ML VIAL ONE (10:16)
[2018-04-01] MEDS ORDERED: PROPOFOL EMUL(*) 10MG/ML 20 ML 20 ML ONE (10:16)
[2018-04-01] MEDS ORDERED: HYDR-4309 PO (10:55)
[2018-04-01] MEDS ORDERED: CEFU500T10 PO (10:55)
--- NOTE | 2018-04-01 10:58 | OPERATIVE REPORT 1 ---
EVENT DATE: April 01, 2018 SURGEON: Wayne Roger MD ANESTHESIOLOGIST: Nomi Ramirez MD ANESTHESIA: LMA. PROCEDURE Revision of a hypertrophic neck scar. PREOPERATIVE DIAGNOSIS Hypertrophic neck scar. POSTOPERATIVE DIAGNOSIS Hypertrophic neck scar. INDICATION Please refer to the preoperative note. DESCRIPTION OF PROCEDURE The patient was positively identified in the preoperative in the preoperative area. She was there alone. Risks were again explained, including but not limited to, bleeding, infection, poor cosmetic result, and those associated with anesthesia. She acknowledged understanding of those risks. She was then brought back to the operative suite, laid supine on the operative table and anesthesia was administered. Once asleep, the patient was positioned, the prepped and draped in usual sterile fashion. An elliptical incision was marked , approximately 2x5 cm. Approximately, 2 cc of 0.25% Marcaine with Epinephrine was infiltrated. The aforementioned incision was then made with then made with a 15 blade. The hypertrophic scar and the underlying subcutaneous tissue was then excised with the needle tip Bovie electrocautery. I undermined the soft tissue off of the underlying latissimus muscle. The wound was then closed in an intermediate fashion with deep dermal chromic suture and the skin layer with interrupted 4-0 Nylon suture. The patient was then turned to anesthesia for emergence. ESTIMATED BLOOD LOSS Negligible. COMPLICATIONS No complications. MTDD
[2018-04-01] MEDS ORDERED: APAP/HYDROCODONE 325/5 TAB ONE (11:08)
[2018-04-01 11:21] VITALS: BP 158/86
[2018-04-01 11:59] VITALS: BP 165/102
[2018-04-01 12:00] VITALS: BP 131/101
[2018-04-08] MEDS ORDERED: LEVO150T78 PO (09:48)
== END 2018-04-01 11:21 | disposition home or self-care (01) ==
LOC: OR 02:21
PROVIDERS: ATTEND Otolaryngology
DX: L91.0 Hypertrophic scar (principal)
CPT/HCPCS: 11426; A9270; J1100; J2405; J2704; J3010; J0690

== ENCOUNTER → 2018-04-18 | Outpatient (CLI) | payer MEDICARE, OTHER ==
[2017-11-18 13:02] VITALS: BMI 27.1
== END ==
LOC: LAB 10:07
PROVIDERS: ATTEND Otolaryngology
DX: E89.0 Postprocedural hypothyroidism (principal)
CPT/HCPCS: 36415; 84443

== ENCOUNTER 2018-11-09 10:10 | Inpatient (IN) | payer MEDICARE, OTHER ==
[~2018-11-09] VITALS: Ht 167.6 cm; Wt 78.0 kg
[~2018-11-09 10:10] MED LIST changes: -HYDR-4309 PO; +HYDR-653 PO; +SIME125C33 PO; -[UNRECOGNIZED DRUG - CODE] PO
--- NOTE | 2018-11-09 10:57 | ER Report ---
History and Physical Time Seen By MD: 10:56 Hx. of Stated Complaint: HAS HAD A COUGH FOR 1 WEEK. WAS SEEN YESTERADY AT AN URGENT CARE. WAS TOLD SHE HAD THE FLU BUT NOT TESTED. HPI/ROS CHIEF COMPLAINT: Cough HISTORY OF PRESENT ILLNESS: This is a 73-year-old female presents to the emergency department for a cough. Patient states that she's had a productive cough more so within the last several days the cough has been ongoing for the last week. She's had aches and chills low-grade fevers. Overall malaise. Was seen at urgent care yesterday and was diagnosed with influenza, there was no influenza screen done. Patient's oxygen saturation was 84% on room air upon arrival. She woke up last night coughing and felt like she was unable to breath. Placed on 2 L nasal cannula oxygen saturation improved to 92%. No headaches, no chest pain, sore throat secondary to persistent cough. REVIEW OF SYSTEMS: Constitutional: As above. Eyes: No discharge. ENT: As above. Cardiovascular: No chest pain, no palpitations. Respiratory: As above. Gastrointestinal: No abdominal pain, no vomiting. Genitourinary: No hematuria. Musculoskeletal: No back pain. Skin: No rashes. Neurological: No headache. Allergies: Coded Allergies: Sulfa (Sulfonamide Antibiotics) (Verified Allergy, Unknown, UNKNOWN, 10/19 04/06) adhesive (Verified Allergy, Unknown, 11/14/17) Home Meds Active Scripts Levothyroxine Sodium (LEVOTHYROXINE SODIUM) 150 Mcg Tablet, 150 MCG PO QDAY for 90 Days, #90 TAB 3 Refills Prov:KALINA ESPARZA JR, MD 04/25/18 Reported Medications Hydrochlorothiazide (HYDROCHLOROTHIAZIDE) 25 Mg Tablet, 1 TAB PO QDAY, TAB 11/09/18 Losartan Potassium (LOSARTAN POTASSIUM) 25 Mg Tablet, 50 MG PO QDAY 11/09/18 Magnesium Amino Acid Chelate (MAGNESIUM) 100 Mg Tablet, 1 TAB PO DAILY 03/25/18 Lutein Extract/Zeaxanthin Ext (LUTEIN 15 MG SOFTGEL) 1 Each Capsule, 1 EACH PO DAILY, CAPSULE 03/25/18 Simethicone (SIMETHICONE) 125 Mg Tab.chew, 1 TAB PO BID, TAB.CHEW 03/25/18 Calcium Carbonate/Vitamin D3 (CALCIUM 600 + VIT D 400 TABLET) 1 Each Tablet, 1 EACH PO 11/18/17 Hydroxyzine Hcl (HYDROXYZINE HCL) 25 Mg Tablet, 25 MG PO 06/01/17 Cetirizine Hcl (ZYRTEC) 10 Mg Capsule, 10 MG PO QDAY, CAPSULE 06/01/17 [place]-3 Fatty Acids (FISH OIL) 500 Mg Capsule.dr, 1000 MG PO DAILY 01/26/16 Omeprazole (OMEPRAZOLE) 20 Mg Capsule.dr, 1 CAP PO QDAY, CAP Every other day 01/26/16 Medroxyprogesterone Acetate (MEDROXYPROGESTERONE ACETATE) 2.5 Mg Tablet, 2.5 MG PO DAILY 01/26/16 Estradiol (ESTRADIOL) 0.5 Mg Tablet, 0.5 MG PO DAILY 01/26/16 Discontinued Reported Medications Losartan Potassium (LOSARTAN POTASSIUM) 50 Mg Tablet, 50 MG PO QDAY 11/09/18 Methylcellulose (FIBER) 500 Mg Tablet, 500 MG PO DAILY 01/26/16 Simvastatin (SIMVASTATIN) 10 Mg Tablet, 10 MG PO HS, TAB 01/26/16 Past Medical/Surgical History The patient has a past medical and surgical history of pneumonia, hypercholesterolemia, questionable COPD, GERD, left ankle fracture, thyroidectomy, hard of hearing, wears glasses, appendectomy, , depression, thyroid cancer, bladder repair, tubal ligation, bunionectomy. Reviewed Nurses Notes: Yes Hx Smoking: Yes Smoking Status: Former Smoker Hx Substance Use Disorder: No Hx Alcohol Use: Yes Constitutional Vital Sign - Last 24 Hours 11/09/18 11/09/18 11/09/18 11/09/18 10:20 10:20 10:30 10:33 Temp 97.9 Pulse 103 99 Resp 18 B/P (MAP) 124/81 (95) 124/81 Pulse Ox 84 92 O2 Delivery Room Air O2 Flow Rate 2.0 11/09/18 11/09/18 11/09/18 11/09/18 10:50 11:10 11:19 11:19 Pulse 96 101 88 Resp 18 Pulse Ox 92 91 93 O2 Delivery Nasal Cannula O2 Flow Rate 3.0 11/09/18 11/09/18 11/09/18 11/09/18 11:24 11:24 11:30 11:50 Pulse 90 99 97 Resp 18 Pulse Ox 90 94 86 O2 Delivery Nasal Cannula O2 Flow Rate 1.0 3/2311/09/18 11/09/18 11/09/18 11:50 12:03 12:10 12:30 Temp 98.1 Pulse 97 95 97 Pulse Ox 86 92 93 11/09/18 11/09/18 11/09/18 11/09/18 12:50 13:00 13:10 13:30 Pulse 98 99 103 103 Resp 16 Pulse Ox 90 90 89 11/09/18 11/09/18 13:30 13:50 Pulse 103 101 Pulse Ox 89 94 Physical Exam General Appearance: The patient is alert, has no immediate need for airway protection and no signs of toxicity. Eyes: Pupils equal and round no pallor or injection. ENT, Mouth: Mucous membranes are dry. Respiratory: Rhonchorous throughout, diminished in the right middle and lower lung field. Cardiovascular: Regular rate and rhythm, no murmurs, clicks or rubs. Gastrointestinal: Abdomen is soft and non tender, no masses, bowel sounds normal. Neurological: Alert and oriented 4. Moving all extremities. Following all commands. No focal neuro deficits. Skin: Warm and dry, no rashes. Musculoskeletal: Neck is supple non tender. Extremities are nontender, nonswollen and have full range of motion. DIFFERENTIAL DIAGNOSIS: After history and physical exam differential diagnosis was considered for influenza, bronchitis, pneumonia, reactive airway disease, C OPD, upper respiratory infection. Medical Decision Making Data Points Result Diagram: 11/09/18 1234 11/09/18 1234 Laboratory Hematology Test 11/09/18 10:38 11/09/18 12:34 Influenza Virus Type A (PCR) Negative (NEGATIVE) Influenza Virus Type B (PCR) Negative (NEGATIVE) Red Blood Count 4.36 M/uL (4.17-5.56) Mean Corpuscular Volume 86.4 fL (80.0-96.0) Mean Corpuscular Hemoglobin 28.5 pg (26.0-33.0) Mean Corpuscular Hemoglobin Concent 32.9 g/dL (32.0-36.0) Red Cell Distribution Width 15.3 % (11.5-14.5) Mean Platelet Volume 7.2 fL (7.2-11.1) Neutrophils (%) (Auto) % (39.4-72.5) Lymphocytes (%) (Auto) % (17.6-49.6) Monocytes (%) (Auto) % (4.1-12.4) Eosinophils (%) (Auto) % (0.4-6.7) Basophils (%) (Auto) % (0.3-1.4) Nucleated RBC Relative Count (auto) /100WBC Neutrophils # (Auto) K/uL (2.0-7.4) Lymphocytes # (Auto) K/uL (1.3-3.6) Monocytes # (Auto) K/uL (0.3-1.0) Eosinophils # (Auto) K/uL (0.0-0.5) Basophils # (Auto) K/uL (0.0-0.1) Nucleated RBC Absolute Count (auto) K/uL Neutrophils % (Manual) 75 % (39.4-72.5) Band Neutrophils % 16 % Lymphocytes % (Manual) 3 % (17.6-49.6) Monocytes % (Manual) 4 % (4.1-12.4) Eosinophils % (Manual) 2 % (0.4-6.7) Basophils % (Manual) 0 % (0.3-1.4) Platelet Estimate Normal Peripheral Blood Smear Yes Y/N Sodium Level 131 mmol/L (137-145) Potassium Level 3.5 mmol/L (3.5-5.0) Chloride Level 96 mmol/L (98-107) Carbon Dioxide Level 25 mmol/L (22-31) Blood Urea Nitrogen 28 mg/dl (7-18) Creatinine 1.80 mg/dl (0.52-1.04) Glomerular Filtration Rate Calc 27.7 Random Glucose 98 mg/dl (75-110) Lactate 1.3 mmol/L (0.7-2.1) Calcium Level 8.2 mg/dl (8.4-10.2) Total Bilirubin 0.7 mg/dl (0.2-1.3) Aspartate Amino Transf (AST/SGOT) 26 U/L (0-35) Alanine Aminotransferase (ALT/SGPT) 35 U/L (0-56) Alkaline Phosphatase 131 U/L (0-126) Total Protein 5.5 g/dl (6.3-8.2) Albumin 3.0 g/dl (3.5-5.0) Chemistry Test 11/09/18 10:38 11/09/18 12:34 Influenza Virus Type A (PCR) Negative (NEGATIVE) Influenza Virus Type B (PCR) Negative (NEGATIVE) White Blood Count 22.8 k/uL (4.5-11.0) Red Blood Count 4.36 M/uL (4.17-5.56) Hemoglobin 12.4 g/dL (12.0-16.0) Hematocrit 37.7 % (34.0-47.0) Mean Corpuscular Volume 86.4 fL (80.0-96.0) Mean Corpuscular Hemoglobin 28.5 pg (26.0-33.0) Mean Corpuscular Hemoglobin Concent 32.9 g/dL (32.0-36.0) Red Cell Distribution Width 15.3 % (11.5-14.5) Platelet Count 337 K/uL (150-450) Mean Platelet Volume 7.2 fL (7.2-11.1) Neutrophils (%) (Auto) % (39.4-72.5) Lymphocytes (%) (Auto) % (17.6-49.6) Monocytes (%) (Auto) % (4.1-12.4) Eosinophils (%) (Auto) % (0.4-6.7) Basophils (%) (Auto) % (0.3-1.4) Nucleated RBC Relative Count (auto) /100WBC Neutrophils # (Auto) K/uL (2.0-7.4) Lymphocytes # (Auto) K/uL (1.3-3.6) Monocytes # (Auto) K/uL (0.3-1.0) Eosinophils # (Auto) K/uL (0.0-0.5) Basophils # (Auto) K/uL (0.0-0.1) Nucleated RBC Absolute Count (auto) K/uL Neutrophils % (Manual) 75 % (39.4-72.5) Band Neutrophils % 16 % Lymphocytes % (Manual) 3 % (17.6-49.6) Monocytes % (Manual) 4 % (4.1-12.4) Eosinophils % (Manual) 2 % (0.4-6.7) Basophils % (Manual) 0 % (0.3-1.4) Platelet Estimate Normal Peripheral Blood Smear Yes Y/N Glomerular Filtration Rate Calc 27.7 Lactate 1.3 mmol/L (0.7-2.1) Calcium Level 8.2 mg/dl (8.4-10.2) Total Bilirubin 0.7 mg/dl (0.2-1.3) Aspartate Amino Transf (AST/SGOT) 26 U/L (0-35) Alanine Aminotransferase (ALT/SGPT) 35 U/L (0-56) Alkaline Phosphatase 131 U/L (0-126) Total Protein 5.5 g/dl (6.3-8.2) Albumin 3.0 g/dl (3.5-5.0) EKG/Imaging Imaging Location: [facility] Patient: Trang Hitchcock : 1945 Visit/Account:[id number] Date of Sevice: 11/09/2018 2 VIEWS CHEST INDICATION: Shortness of breath COMPARISON: X-ray examination February 23, 2018 FINDINGS: Compared to prior examination, there is pulmonary hyperinflation with more extensive bronchial wall thickening and linear coarsening of the interstitium throughout. There is patchy alveolar opacities seen bilaterally. This is most notable in the lingula, lower lobes and left upper lobe. Finding is indicative of multifocal bronchopneumonia. IMPRESSION: 1. Pulmonary hyperinflation with findings indicative of multifocal bronch opneumonia. Report Dictated By: Sandeep Naranjo MD at 11/09/2018 10:55 AM Report E-Signed By: Sandeep Naranjo MD at 11/09/2018 10:57 AM WSN:[id number] ED Course/Re-evaluation Clinical Indication for ER IV: Hydration, IV Access ED Course The patient was admitted to room. A history and physical were obtained. Differential diagnoses were considered. Initially a chest x-ray and influenza swabs were obtained. Negative influenza, two-view chest x-ray showing multifocal pneumonia. I did review all the results with the patient, we discussed treating her outpatient at home with antibiotics, home oxygen, nebulizers and steroids. The patient did have some reluctance as she said over the last 2 nights she's had some increased difficulty sleeping, last night woke up feeling as though she couldn't breathe and short of breath. I did review this with Dr. Ochoa, the hospitalist, I did start an IV, CBC, CMP were obtained. A 1 L normal saline bolus was given. Lactate was collected, blood cultures were collected.CBC showing white count of 22.8, with a left shift, chemistry showing creatinine 1.8 and negative influenza. I did give the patient 1 g of Rocephin. I did speak with Dr. Ochoa again, he has accepted the patient in the hospitalist service as noted below. Patient will be admitted for pneumonia and hypoxia as her room air was 84% on room air upon arrival, after a DuoNeb she was in the upper 80s on room air. I did give her a nebulized lidocaine treatment for the coughing episodes, this did suppress the cough for the duration of her stay in the emergency department. The patient had no other questions or concerns at the time of admission. 11/09/2018 12:15:48 pm I did speak with Dr. Judit Ochoa regarding the patients case, we discussed admit to hospital. The patient's O2 saturation remains in the mid to upper 80's on room air, after duoneb. HR around 105. She has also had decreased urinary output over the past 2 days. 11/09/2018 1:17:[address] sha Ochoa has accepted the patient into the hospitalist services for pneumonia and hypoxia. Decision to Disposition Date: Nov 09, 2018 Decision to Disposition Time: 13:17 Depart Departure Latest Vital Signs Vital Signs Date Time Temp Pulse Resp B/P (MAP) Pulse Ox O2 Delivery O2 Flow Rate FiO2 11/09/18 13:50 101 94 11/09/18 13:00 16 11/09/18 12:03 98.1 11/09/18 11:24 Nasal Cannula 1.0 11/09/18 10:20 124/81 Impression: Primary Impression: Multifocal pneumonia Additional Impression: Hypoxia Condition: Improved Disposition: Admitted from ER Referrals: RYLIE ROBLEDO DO (PCP) Problem Qualifiers JAMES GONZALEZ [employer] Nov 09, 2018 10:57
--- NOTE | 2018-11-09 11:00 | RADIOLOGY IMAGING REPORT ---
FACILITY: [facility] - [place] PATIENT NAME: Trang Hitchcock : 1945 MR: [id number] V: [id number] EXAM DATE: ORDERING PHYSICIAN: ULYSSES SALGADO TECHNOLOGIST: Location: [facility] - [place] Patient: Trang Hitchcock : 1945 Visit/Account:[id number] Date of Sevice: 11/09/2018 2 VIEWS CHEST INDICATION: Shortness of breath COMPARISON: X-ray examination February 23, 2018 FINDINGS: Compared to prior examination, there is pulmonary hyperinflation with more extensive bronchial wall t hickening and linear coarsening of the interstitium throughout. There is patchy alveolar opacities se en bilaterally. This is most notable in the lingula, lower lobes and left upper lobe. Finding is ind icative of multifocal bronchopneumonia. IMPRESSION: 1. Pulmonary hyperinflation with findings indicative of multifocal bronchopneumonia. Report Dictated By: Sandeep Naranjo MD at 11/09/2018 10:55 AM Report E-Signed By: Sandeep Naranjo MD at 11/09/2018 10:57 AM WSN:[id number]
[2018-11-09] MEDS ORDERED: ALBUTEROL/IPRATROPIUM 3 ML NEB NEB ONE (11:10)
[2018-11-09] MEDS ORDERED: NS(*) 0.9% 1000 ML BAG 1,000 ML IV ONE (12:00)
[2018-11-09] MEDS ORDERED: LIDOCAINE 4% SOLN 50 ML BTL TP ONE (12:40)
[2018-11-09 12:47] LABS: PLATELET COUNT, AUTOMATED 337 K/uL (150-450)
[2018-11-09] MEDS ORDERED: cefTRIAXone(*) 1 GM VIAL 1 GM in NS(*) 0.9% 100 ML ADDVANT BAG 100 ML IVPB ONE (13:05)
[2018-11-09 14:17] VITALS: BP 124/77
[2018-11-09] MEDS ORDERED: LOSA25TA57 PO (14:23)
[2018-11-09] MEDS ORDERED: HYDR-2966 PO (14:23)
[2018-11-09] MEDS ORDERED: LOSA50TA80 PO (14:23)
[2018-11-09] MEDS: NS(*) 0.9% 1000 ML BAG 1,000 ML IV PRN ×2 (15:00→23:54)
[2018-11-09] MEDS ORDERED: ALBUTEROL 2.5 MG/3 ML NEB NEB PRN (16:30)
[2018-11-09] MEDS: ACETAMINOPHEN 500 MG TAB PO PRN (16:40)
[2018-11-09] MEDS: GUAIFENESIN/DEXTROMETHORPHAN 5 ML PO PRN ×2 (16:40→20:45)
--- NOTE | 2018-11-09 16:51 | History & Physical ---
History of Present Illness History of Present Illness 73yo female with a h/o HTN and GERD who came to the ER for progressive SOB, cough and myalgias. A week ago she developed a productive cough, myalgia and some loose stools. The loose stools have resolved, but the cough has worsened such that she can't lie flat without a lot of coughing and she gets SOB. She person sn't slept well for the last couple of nights. She had a fever of 102 two days ago and 99 yesterday. Her sputum is now green. She went to an Urgent Care yesterday. They told her that she likely had influenza. She denies any n/v/LE edema. She denies any h/o CAD, COPD, asthma, CVD, or CHF. She did smoke for 6 years and quit about 45 years ago. No recent changes in medications, but she was given a cough syrup with codeine. In the ER, she was given a liter of fluid, ceftriaxone and a nebulizer treatment. History Problems: (1) HTN (hypertension) (2) GERD (gastroesophageal reflux disease) (3) Hypothyroid Home Meds Active Scripts Levothyroxine Sodium (LEVOTHYROXINE SODIUM) 150 Mcg Tablet, 150 MCG PO QDAY for 90 Days, #90 TAB 3 Refills Prov:KALINA ESPARZA JR, MD 04/25/18 Reported Medications Hydrochlorothiazide (HYDROCHLOROTHIAZIDE) 25 Mg Tablet, 1 TAB PO QDAY, TAB 11/09/18 Losartan Potassium (LOSARTAN POTASSIUM) 25 Mg Tablet, 25 MG PO BID 11/09/18 Magnesium Amino Acid Chelate (MAGNESIUM) 100 Mg Tablet, 1 TAB PO DAILY 03/25/18 Lutein Extract/Zeaxanthin Ext (LUTEIN 15 MG SOFTGEL) 1 Each Capsule, 1 EACH PO DAILY, CAPSULE 03/25/18 Simethicone (SIMETHICONE) 125 Mg Tab.chew, 1 TAB PO BID, TAB.CHEW 03/25/18 Calcium Carbonate/Vitamin D3 (CALCIUM 600 + VIT D 400 TABLET) 1 Each Tablet, 1 EACH PO 11/18/17 Hydroxyzine Hcl (HYDROXYZINE HCL) 25 Mg Tablet, 25 MG PO HS 06/01/17 Cetirizine Hcl (ZYRTEC) 10 Mg Capsule, 10 MG PO QDAY, CAPSULE 06/01/17 [place]-3 Fatty Acids (FISH OIL) 500 Mg Capsule.dr, 1000 MG PO DAILY 01/26/16 Omeprazole (OMEPRAZOLE) 20 Mg Capsule.dr, 1 CAP PO QDAY, CAP Every other day 01/26/16 Medroxyprogesterone Acetate (MEDROXYPROGESTERONE ACETATE) 2.5 Mg Tablet, 2.5 MG PO DAILY 01/26/16 Estradiol (ESTRADIOL) 0.5 Mg Tablet, 0.5 MG PO DAILY 01/26/16 Discontinued Reported Medications Losartan Potassium (LOSARTAN POTASSIUM) 50 Mg Tablet, 50 MG PO QDAY 11/09/18 Methylcellulose (FIBER) 500 Mg Tablet, 500 MG PO DAILY 01/26/16 Simvastatin (SIMVASTATIN) 10 Mg Tablet, 10 MG PO HS, TAB 01/26/16 Allergies: Coded Allergies: Sulfa (Sulfonamide Antibiotics) (Verified Allergy, Unknown, UNKNOWN, 11/14/17) adhesive (Verified Allergy, Unknown, 11/14/17) Patient History: FH: heart failure FATHER, , Age:69 FH: hypertension MOTHER, , Age:85 Other Social/Family Hx . Occasional alcohol use. Hx Smoking: Yes Smoking Status: Former Smoker Caffeine Intake: Coffee Caffeine/Cups Per Day: 12 OZ OF EXPRESSO Hx Alcohol Use: Yes Hx Substance Use Disorder: No Social Drug Use: Never Review of Systems All Systems Reviewed/Normal: Yes, Except as Noted Exam Vital Signs Vital Signs Date Time Temp Pulse Resp B/P (MAP) Pulse Ox O2 Delivery O2 Flow Rate FiO2 11/09/18 15:03 93 Nasal Cannula 2.0 11/09/18 14:17 98.1 71 18 124/77 (93) General Appearance: Alert, Awake, Other (Coughing a lot) Neuro: No Gross deficits Eyes: PERRLA ENT: Moist Mucous Membranes Cardiovascular: No JVD, Other (Regular, borderline tachy. No m/r/g) Respiratory: Other (Bibasilar insp crackles) GI: Abd Soft and Non-Tender Extremities: No Edema Integumentary: No Jaundice, No Cyanosis Medical Decision Making Data Points Result Diagram: 11/09/18 1234 11/09/18 1234 Item Value Date Time Neutrophils (%) (Auto) % 11/09/18 1234 Neutrophils % (Manual) 75 % H 11/09/18 1234 Lymphocytes % (Manual) 3 % L 11/09/18 1234 Band Neutrophils % 16 % 11/09/18 1234 Monocytes % (Manual) 4 % L 11/09/18 1234 Eosinophils % (Manual) 2 % 11/09/18 1234 Blood Urea Nitrogen 28 mg/dl H 11/09/18 1234 Creatinine 1.80 mg/dl H 11/09/18 1234 Total Bilirubin 0.7 mg/dl 11/09/18 1234 Aspartate Amino Transf (AST/SGOT) 26 U/L 11/09/18 1234 Alanine Aminotransferase (ALT/SGPT) 35 U/L 11/09/18 1234 Alkaline Phosphatase 131 U/L H 11/09/18 1234 Influenza Virus Type A (PCR) Negative 11/09/18 1038 Influenza Virus Type B (PCR) Negative 11/09/18 1038 EKG / Imaging Imaging CXR - Pulmonary hyperinflation with findings indicative of multifocal bronch opneumonia. Assessment and Plan Problems: (1) Multifocal pneumonia Status: Acute Assessment & Plan: She presented with a week of a progressive cough, SOB, and myalgias. She has an elevated WBC, is hypoxic on RA and has a multifocal pneumonia on CXR. She was started on Ceftriaxone in the ER, which will continued and will add doxycycline. Because her cough is fairly bothersome and frequent, will try Mucinex, Robitussin DM, Tessalon Perles, DuoNebs and prn albuterol. (2) Elevated serum creatinine Assessment & Plan: Secondary to poor fluid intake and exacerbated by HCTZ, losartan and ibuprofen use. She will continue to be hydrated and will follow creatinine. (3) HTN (hypertension) Assessment & Plan: She is chronically on losartan and HCTZ. Those will be held for now because of the elevated creatinine. (4) GERD (gastroesophageal reflux disease) Assessment & Plan: She is chronically on omeprazole. Will use Protonix in the hospital. Copies to: RYLIE ROBLEDO DO ; Venous Thromboembolism Antithrombotics Is Pt On Any Antithrombotics?: No Exam Sepsis Risk: No Definite Risk OLAF DUNHAM MD Nov 09, 2018 16:51
[2018-11-09] MEDS: ERYTHROMYCIN OP OINT 5MG/GM TU OD SCH ×2 (17:25→20:28)
[2018-11-09] MEDS: ALBUTEROL/IPRATROPIUM 3 ML NEB NEB SCH (18:01)
[2018-11-09 19:19] VITALS: BP 131/80
[2018-11-09] MEDS: hydrOXYzine 25 MG TAB PO SCH (20:28)
[2018-11-09] MEDS: guaiFENesin 600 MG TABCR PO SCH (20:28)
[2018-11-09] MEDS: DOXYCYCLINE HYCL 100 MG VIAL 100 MG in NS(*) 0.9% 250 ML BAG 250 ML IV SCH (20:30)
[2018-11-10] MEDS: BENZONATATE 100 MG CAP PO PRN ×2 (02:42→11:47)
[2018-11-10] MEDS: GUAIFENESIN/DEXTROMETHORPHAN 5 ML PO PRN ×3 (02:42→18:02)
[2018-11-10] MEDS: ACETAMINOPHEN 500 MG TAB PO PRN (02:42)
[2018-11-10 02:45] VITALS: BP 145/84
[2018-11-10] MEDS: LEVOTHYROXINE SOD 0.150 MG TAB PO SCH (05:19)
[2018-11-10 05:54] LABS: PLATELET COUNT, AUTOMATED 290 K/uL (150-450)
[2018-11-10] MEDS: ALBUTEROL/IPRATROPIUM 3 ML NEB NEB SCH ×3 (05:56→16:44)
[2018-11-10] MEDS: CETIRIZINE HCL 10 MG TAB PO SCH (08:37)
[2018-11-10] MEDS: guaiFENesin 600 MG TABCR PO SCH ×2 (08:37→20:16)
[2018-11-10] MEDS: NS(*) 0.9% 1000 ML BAG 1,000 ML IV PRN (08:37)
[2018-11-10] MEDS: PANTOPRAZOLE SOD 40 MG TABEC PO SCH (08:38)
[2018-11-10] MEDS: MEDROXYPROGESTERONE ACETATE PO SCH (08:38)
[2018-11-10] MEDS: ENOXAPARIN 30 MG/0.3 ML SYR SC SCH (08:38)
[2018-11-10] MEDS: ESTRADIOL 0.5 MG TABLET PO SCH (08:38)
[2018-11-10] MEDS: ERYTHROMYCIN OP OINT 5MG/GM TU OD SCH ×4 (08:39→20:16)
[2018-11-10] MEDS: DOXYCYCLINE HYCL 100 MG VIAL 100 MG in NS(*) 0.9% 250 ML BAG 250 ML IV SCH ×2 (08:41→20:15)
[2018-11-10 09:11] VITALS: Ht 167.6 cm; Wt 78.0 kg
[2018-11-10] MEDS ORDERED: NS(*) 0.9% 1000 ML BAG 1,000 ML IV PRN (09:52)
--- NOTE | 2018-11-10 11:21 | Hospitalist Progress Note ---
Subjective Progress Notes Subjective She reports continued cough/body aches. Overall, however, she reports feeling improved. Physical Exam Vital Signs Date Time Temp Pulse Resp B/P (MAP) Pulse Ox O2 Delivery O2 Flow Rate FiO2 11/10/18 07:36 93 Nasal Cannula 0.5 11/10/18 06:02 92 11/10/18 05:57 20 11/10/18 02:45 98.0 145/84 (104) Intake and Output 11/10/18 06:59 Intake Total 3010 ml Balance 3010 ml Intake Oral 960 ml IV Total 2050 ml # Voids 6 General Appearance: Alert, Awake Cardiovascular: Regular Rate and Rhythm Respiratory: Other (few rales at right base and on right side anteriorly/no current wheezes) GI: Soft and Non-Tender Extremities: Warm, Perfused Result Diagram: 11/10/1852311/10/18523 Assessment and Plan Problems: (1) Multifocal pneumonia Status: Acute Assessment & Plan: Some minor clinical improvements. She presented with a week of a progressive cough, SOB, and myalgias. She has an elevated WBC. She is also hypoxic on RA and has a multifocal infiltrates on CXR. She was started on IV Ceftriaxone and doxycycline. She is also on Mucinex, Robitussin DM, Tessalon Perles, DuoNeb and prn albuterol. (2) Elevated serum creatinine Assessment & Plan: Improved. Creatinine is now 1.2 (1.8 at time of admission). Secondary to poor fluid intake and exacerbated by HCTZ, losartan, and ibuprofen use. She will continue IV fluids and will follow labs/creatinine. (3) HTN (hypertension) Assessment & Plan: She is chronically on losartan and HCTZ. Those will be held for now because of the elevated creatinine. (4) GERD (gastroesophageal reflux disease) Assessment & Plan: She is chronically on omeprazole. Will use Protonix in the hospital. Exam Sepsis Risk: Sepsis Risk ROSEMARY RUTLEDGE MD Nov 10, 2018 11:21
[2018-11-10] MEDS: ACETAMINOPHEN 325 MG TAB PO PRN ×2 (11:47→18:02)
[2018-11-10] MEDS: cefTRIAXone 1 GM VIAL IVP SCH (13:25)
[2018-11-10 16:39] VITALS: BP 147/84
[2018-11-10] MEDS ORDERED: INFLUENZA VIRUS VAC 0.5ML SYR IM ONLY ONE (16:50)
[2018-11-10] MEDS: hydrOXYzine 25 MG TAB PO SCH (20:16)
[2018-11-10 20:25] VITALS: BP 171/90
[2018-11-11] MEDS: ACETAMINOPHEN 325 MG TAB PO PRN ×2 (01:07→20:48)
[2018-11-11] MEDS: GUAIFENESIN/DEXTROMETHORPHAN 5 ML PO PRN ×5 (01:07→23:29)
[2018-11-11] MEDS: BENZONATATE 100 MG CAP PO PRN ×3 (01:07→18:01)
[2018-11-11 05:06] VITALS: BP 128/64
[2018-11-11] MEDS: LEVOTHYROXINE SOD 0.150 MG TAB PO SCH (05:43)
[2018-11-11 06:00] LABS: PLATELET COUNT, AUTOMATED 351 K/uL (150-450)
[2018-11-11] MEDS: ALBUTEROL/IPRATROPIUM 3 ML NEB NEB SCH ×3 (06:00→17:52)
[2018-11-11 07:56] VITALS: BP 155/95
[2018-11-11] MEDS ORDERED: methylPREDNIS SUCC 125 MG/2ML IVP ONE (09:02)
[2018-11-11] MEDS: ENOXAPARIN 30 MG/0.3 ML SYR SC SCH (10:17)
[2018-11-11] MEDS: CETIRIZINE HCL 10 MG TAB PO SCH (10:18)
[2018-11-11] MEDS: ESTRADIOL 0.5 MG TABLET PO SCH (10:18)
[2018-11-11] MEDS: MEDROXYPROGESTERONE ACETATE PO SCH (10:18)
[2018-11-11] MEDS: DOXYCYCLINE HYCL 100 MG VIAL 100 MG in NS(*) 0.9% 250 ML BAG 250 ML IV SCH ×2 (10:18→20:08)
[2018-11-11] MEDS: guaiFENesin 600 MG TABCR PO SCH ×2 (10:18→20:08)
[2018-11-11] MEDS ORDERED: POTASSIUM CHL 20 MEQ TABCR PO ONE (11:00)
--- NOTE | 2018-11-11 11:04 | Hospitalist Progress Note ---
Subjective Progress Notes Subjective She was admitted with pneumonia. She is tearful and has complaints of shortness of breath. Patient Complains of: Cardiovascular: No: Chest Pain Respiratory: Cough, Congestion, Shortness of Breath Physical Exam Vital Signs Date Time Temp Pulse Resp B/P (MAP) Pulse Ox O2 Delivery O2 Flow Rate FiO2 11/11/18 10:29 Nasal Cannula 0.5 11/11/18 07:56 98.4 81 22 155/95 (115) 89 Intake and Output 11/11/18 07:00 Intake Total 3290 ml Balance 3290 ml Intake Oral 2040 ml IV Total 1250 ml # Voids 9 General Appearance: Alert, Awake, No Acute Distress, Afebrile Neuro: No Gross deficits Cardiovascular: Regular Rate and Rhythm Respiratory: No Respiratory Distress, Other (expiratory wheezes throughout, tight air movement noted) Extremities: Warm, Perfused; No Edema Psych: Alert & Oriented X3, Appropriate Mood & Affect Result Diagram: 11/11/1851711/11/18517 Assessment and Plan Problems: (1) Multifocal pneumonia Status: Acute Assessment & Plan: Some minor clinical improvements. She presented with a week of a progressive cough, SOB, and myalgias. She has an elevated WBC. She is also hypoxic on RA and has a multifocal infiltrates on CXR. She was started on IV Ceftriaxone and doxycycline. She is also on Mucinex, Robitussin DM, Tessalon P erles, DuoNeb and prn albuterol. Will add Solu-Medrol today for wheezes. (2) Elevated serum creatinine Assessment & Plan: Improved. Creatinine is now 0.8 (1.8 at time of admission). Secondary to poor fluid intake and exacerbated by HCTZ, losartan, and ibuprofen use. She received IV fluids and will follow labs/creatinine. (3) HTN (hypertension) Status: Chronic Assessment & Plan: She is chronically on losartan and HCTZ. HCTZ will be held for now because of the elevated creatinine. Restart Losartan tonight with hold parameters. (4) GERD (gastroesophageal reflux disease) Assessment & Plan: She is chronically on omeprazole. Will use Protonix in the hospital. Exam Sepsis Risk: Sepsis Risk Problem Qualifiers (1) HTN (hypertension): Hypertension type: essential hypertension Qualified Codes: I10 - Essential (primary) hypertension ATILIO MEREDITH IC [employer] Nov 11, 2018 11:04
[2018-11-11 12:02] VITALS: BP 172/93
[2018-11-11] MEDS: ERYTHROMYCIN OP OINT 5MG/GM TU OD SCH ×4 (12:09→20:08)
[2018-11-11] MEDS: cefTRIAXone 1 GM VIAL IVP SCH (13:07)
[2018-11-11 18:05] VITALS: BP 141/91
[2018-11-11 18:58] VITALS: BP 162/96
[2018-11-11] MEDS: LOSARTAN POTASSIUM 50 MG TAB PO SCH (20:07)
[2018-11-11] MEDS: hydrOXYzine 25 MG TAB PO SCH (20:07)
--- NOTE | 2018-11-11 20:28 | Antimicrobial Stewardship ---
Antimicrobial Stewardship Empiricly appropriate: Yes (On Rocephin 1 gm IV daily and Doxycycline 100 mg IV q12h for pneumonia.) Approriate Cultures done: Yes (No growth to date) Renal/Hepatic dosing: Yes Reviewed for Drug Interaction: Yes Monitored for Toxicities: Yes Clinically stable/improving: Yes IV to PO Opportunity: No Determine cumulative duration: 5-10 days DEB MONTGOMERY Nov 11, 2018 20:28
[2018-11-12 03:33] VITALS: BP 150/93
[2018-11-12] MEDS: BENZONATATE 100 MG CAP PO PRN (03:44)
[2018-11-12] MEDS: ALBUTEROL/IPRATROPIUM 3 ML NEB NEB SCH ×2 (05:29→11:15)
[2018-11-12] MEDS: LEVOTHYROXINE SOD 0.150 MG TAB PO SCH (05:40)
[2018-11-12 05:46] LABS: PLATELET COUNT, AUTOMATED 393 K/uL (150-450)
[2018-11-12] MEDS ORDERED: NS(*) 0.9% 250 ML BAG 250 ML ONE (05:50)
[2018-11-12 07:28] VITALS: BP 149/81
[2018-11-12] MEDS: GUAIFENESIN/DEXTROMETHORPHAN 5 ML PO PRN ×2 (07:39→16:45)
[2018-11-12] MEDS: ACETAMINOPHEN 325 MG TAB PO PRN ×2 (07:39→16:45)
[2018-11-12] MEDS: guaiFENesin 600 MG TABCR PO SCH (08:49)
[2018-11-12] MEDS: ENOXAPARIN 30 MG/0.3 ML SYR SC SCH (08:49)
[2018-11-12] MEDS: ESTRADIOL 0.5 MG TABLET PO SCH (08:49)
[2018-11-12] MEDS: PANTOPRAZOLE SOD 40 MG TABEC PO SCH (08:50)
[2018-11-12] MEDS: MEDROXYPROGESTERONE ACETATE PO SCH (08:50)
[2018-11-12] MEDS: LOSARTAN POTASSIUM 50 MG TAB PO SCH (08:50)
[2018-11-12] MEDS: CETIRIZINE HCL 10 MG TAB PO SCH (08:50)
[2018-11-12] MEDS: ERYTHROMYCIN OP OINT 5MG/GM TU OD SCH ×2 (08:51→13:15)
[2018-11-12] MEDS: DOXYCYCLINE HYCL 100 MG VIAL 100 MG in NS(*) 0.9% 250 ML BAG 250 ML IV SCH (09:45)
[2018-11-12] MEDS ORDERED: predniSONE 20 MG TAB PO SCH (11:05)
[2018-11-12] MEDS ORDERED: CEFDINIR 300 MG CAP PO SCH (11:16)
[2018-11-12 12:13] VITALS: BP 153/83
[2018-11-12] MEDS ORDERED: DOXY-179 PO (15:20)
[2018-11-12] MEDS ORDERED: LACT1CAP6 PO (15:20)
[2018-11-12] MEDS ORDERED: CEF300 PO (15:20)
[2018-11-12] MEDS ORDERED: METH4TAB66 PO (15:20)
--- NOTE | 2018-11-12 15:29 | Hospitalist Depart ---
Discharge Summary Reason for Hosp/Final Diag: (1) Multifocal pneumonia Status: Acute Hospital Course & Plan: She presented with a week of a progressive cough, SOB, and myalgias. She had an elevated WBC. She was hypoxic on RA and has a multifocal infiltrates on CXR. She was started on IV Ceftriaxone and doxycycline. She was also on Prednsione, Mucinex, Robitussin DM, Tessalon Perles, DuoNeb and prn albuterol. She will go home on 6 more days of antibiotics and a Medrol dose pack. She will need a follow up CXR in 6 weeks to look for resolution. (2) Elevated serum creatinine Hospital Course & Plan: Improved. Creatinine is now 0.8 (1.8 at time of admission). Secondary to poor fluid intake and exacerbated by HCTZ, losartan, and ibuprofen use. She received IV fluids and will follow labs/creatinine. She can restart HCTZ and Losartan. (3) HTN (hypertension) Status: Chronic Hospital Course & Plan: She is chronically on losartan and HCTZ. (4) GERD (gastroesophageal reflux disease) Hospital Course & Plan: She is chronically on omeprazole. Departure Weight (Pounds): 172 Result Diagram: 11/12/18 0509 11/12/18 050 Item Value Date Time Creatinine 1.80 mg/dl H 11/09/18 1234 White Blood Count 22.8 k/uL H 11/09/18 1234 White Blood Count 22.7 k/uL H 11/10/18 0524 White Blood Count 16.2 k/uL H 11/11/18 0518 White Blood Count 11.7 k/uL H 11/12/18 0509 Band Neutrophils % 16 % 11/09/18 1234 Band Neutrophils % 5 % 11/10/18 0524 Band Neutrophils % 2 % 11/11/18 0518 Neutrophils % (Manual) 77 % H 11/11/18 0518 Neutrophils % (Manual) 80 % H 11/10/18 0524 Neutrophils % (Manual) 75 % H 11/09/18 1234 Neutrophils (%) (Auto) 87.5 % H 11/12/18 0509 Lymphocytes (%) (Auto) 7.9 % L 11/12/18 0509 Creatinine 1.20 mg/dl H 11/10/18 0524 Creatinine 0.80 mg/dl 11/11/18 0518 Total Bilirubin 0.7 mg/dl 11/09/18 1234 Alanine Aminotransferase (ALT/SGPT) 35 U/L 11/09/18 1234 Aspartate Amino Transf (AST/SGOT) 26 U/L 11/09/18 1234 Sodium Level 131 mmol/L L 11/09/18 1234 Sodium Level 131 mmol/L L 11/10/18 0524 Sodium Level 130 mmol/L L 11/12/18 0509 Sodium Level 133 mmol/L L 11/11/18 0518 Influenza Virus Type A (PCR) Negative 11/09/18 1038 Influenza Virus Type B (PCR) Negative 11/09/18 1038 Imaging CXR - 1. Pulmonary hyperinflation with findings indicative of multifocal bronchopneumonia. Condition: Improved Discharge: Home Discharge Instructions Home Meds Active Scripts Benzonatate 100 Mg Cap (TESSALON PERLE 100 MG CAP) 100 Mg Capsule, 100 MG PO TID PRN for cough, #15 CAP Prov:OLAF DUNHAM MD 11/12/18 Albuterol Sulfate 90 Mcg/Act (PROAIR HFA 90 MCG/ACT) 8.5 Gm Hfa.aer.ad, 2 PUFF IH Q4-6H PRN for SHORTNESS OF BREATH, #1 INHALER Prov:OLAF DUNHAM MD 11/12/18 Lactobacillus Combination No.4 (PROBIOTIC) 1 Each Capsule, 1 EACH PO DIRECTED for 6 Days, CAPSULE Prov:OLAF DUNHAM MD 11/12/18 Methylprednisolone (METHYLPREDNISOLONE) 4 Mg Tab.ds.pk, 4 MG PO DIRECTED, #21 TAB start on 11/13 Prov:OLAF DUNHAM MD 11/12/18 Doxycycline Hyclate (DOXYCYCLINE HYCLATE) 100 Mg Tablet, 100 MG PO BID, #12 Prov:OLAF DUNHAM MD 11/12/18 Cefdinir 300 Mg Cap (OMNICEF 300 MG CAP (OR EQUIV)) 300 Mg Cap, 300 MG PO BID, #12 CAP Prov:OLAF DUNHAM MD 11/12/18 Levothyroxine Sodium (LEVOTHYROXINE SODIUM) 150 Mcg Tablet, 150 MCG PO QDAY for 90 Days, #90 TAB 3 Refills Prov:KALINA ESPARZA JR, MD 04/25/18 Reported Medications Hydrochlorothiazide (HYDROCHLOROTHIAZIDE) 25 Mg Tablet, 1 TAB PO QDAY, TAB 11/09/18 Losartan Potassium (LOSARTAN POTASSIUM) 25 Mg Tablet, 25 MG PO BID 11/09/18 Magnesium Amino Acid Chelate (MAGNESIUM) 100 Mg Tablet, 1 TAB PO DAILY 03/25/18 Lutein Extract/Zeaxanthin Ext (LUTEIN 15 MG SOFTGEL) 1 Each Capsule, 1 EACH PO DAILY, CAPSULE 03/25/18 Simethicone (SIMETHICONE) 125 Mg Tab.chew, 1 TAB PO BID, TAB.CHEW 03/25/18 Calcium Carbonate/Vitamin D3 (CALCIUM 600 + VIT D 400 TABLET) 1 Each Tablet, 1 EACH PO 11/18/17 Hydroxyzine Hcl (HYDROXYZINE HCL) 25 Mg Tablet, 25 MG PO HS 06/01/17 Cetirizine Hcl (ZYRTEC) 10 Mg Capsule, 10 MG PO QDAY, CAPSULE 06/01/17 [place]-3 Fatty Acids (FISH OIL) 500 Mg Capsule.dr, 1000 MG PO DAILY 01/26/16 Omeprazole (OMEPRAZOLE) 20 Mg Capsule.dr, 1 CAP PO QDAY, CAP Every other day 01/26/16 Medroxyprogesterone Acetate (MEDROXYPROGESTERONE ACETATE) 2.5 Mg Tablet, 2.5 MG PO DAILY 01/26/16 Estradiol (ESTRADIOL) 0.5 Mg Tablet, 0.5 MG PO DAILY 01/26/16 Discontinued Reported Medications Losartan Potassium (LOSARTAN POTASSIUM) 50 Mg Tablet, 50 MG PO QDAY 11/09/18 Methylcellulose (FIBER) 500 Mg Tablet, 500 MG PO DAILY 01/26/16 Simvastatin (SIMVASTATIN) 10 Mg Tablet, 10 MG PO HS, TAB 01/26/16 Diet: Regular Special Instructions: Follow up with PCP in 1-2 weeks. You will need a follow up CXR in 6 weeks to look for resolution. Go to the ER for worsening SOB, fevers. Copies to: RYLIE ROBLEDO DO ; Venous Thromboembolism Antithrombotics Is Pt On Any Antithrombotics?: No Problem Qualifiers (1) HTN (hypertension): Hypertension type: essential hypertension Qualified Codes: I10 - Essential (primary) hypertension OLAF DUNHAM MD Nov 12, 2018 15:29
[2018-11-12] MEDS ORDERED: ALBU8.5H IH (15:34)
[2018-11-12] MEDS ORDERED: BENZ100C4 PO (15:34)
[2018-11-12] MEDS ORDERED: DOXYCYCLINE HYCL 100 MG TAB PO SCH (21:00)
== END 2018-11-12 17:16 | disposition home or self-care (01) | DRG 195 ==
LOC: ER 10:48 → MED 13:54
PROVIDERS: ADMIT Internal Medicine; ATTEND Internal Medicine
DX: J18.9 Pneumonia, unspecified organism (principal); I10 Essential (primary) hypertension; K21.9 Gastro-esophageal reflux disease without esophagitis; T50.2X5A Adverse effect of carbonic-anhydrase inhibitors, benzothiadiazides and other diuretics, initial encounter; T46.5X5A Adverse effect of other antihypertensive drugs, initial encounter; T39.315A Adverse effect of propionic acid derivatives, initial encounter; R74.8 Abnormal levels of other serum enzymes; E78.00 Pure hypercholesterolemia, unspecified; R09.02 Hypoxemia; E89.0 Postprocedural hypothyroidism; F32.9 Major depressive disorder, single episode, unspecified; Z88.2 Allergy status to sulfonamides; Z85.850 Personal history of malignant neoplasm of thyroid; Z87.891 Personal history of nicotine dependence
CPT/HCPCS: 36415; 71046; 82040; 82247; 82310; 82374; 82435; 82565; 82947; 83605; 84075; 84132; 84155; 84295; 84450; 84460; 84520; 85025; 87040; 87502; 94640; 94667; 94668; 96365; 99284; J0696; J1650; J2930; J3490; J7030; J7050; J7512; J7613

== ENCOUNTER → 2019-01-01 | Outpatient (CLI) | payer MEDICARE, OTHER ==
[2018-11-10 09:11] VITALS: BMI 27.8
[~2019-01-01] MED LIST changes: +ALBU8.5H IH; +BENZ100C4 PO; +CEF300 PO; +DOXY-179 PO; +HYDR-2966 PO; +LACT1CAP6 PO; +LOSA25TA57 PO; +LOSA50TA80 PO; +METH4TAB66 PO
--- NOTE | 2019-01-01 17:09 | RADIOLOGY IMAGING REPORT ---
FACILITY: [facility] - [place] PATIENT NAME: Trang Hitchcock : 1945 MR: [id number] V: [id number] EXAM DATE: ORDERING PHYSICIAN: RYLIE ROBLEDO TECHNOLOGIST: Location: [facility] [place] Patient: Trang Hitchcock : 1945 Visit/Account:[id number] Date of Sevice: 01/01/2019 CHEST PA LAT COMPARISON: None. HISTORY: Pneumonia and cough. FINDINGS: CARDIAC/VASC: No cardiac silhouette abnormality or cardiomegaly. Unremarkable pulmonary vasculatu re. MEDIASTINUM: No visible mass or adenopathy. LUNGS/PLEURA: No pneumothorax. No significant pulmonary parenchymal abnormalities. No effusion or p leural thickening. BONES: No fracture or visible bony lesion. Mild thoracic spine dextroscoliosis and degenerative endplate spurring. OTHER:Negative. IMPRESSION: No acute cardiopulmonary process. Report Dictated By: Dario Lopez at 01/01/2019 5:04 PM Report E-Signed By: Dario Lopez at 01/01/2019 5:05 PM WSN:[id number]
== END ==
LOC: RAD 16:15
PROVIDERS: ATTEND Family Medicine
DX: J18.9 Pneumonia, unspecified organism (principal)
CPT/HCPCS: 71046

== ENCOUNTER → 2019-03-17 | Outpatient (CLI) | payer MEDICARE, OTHER ==
[2018-11-10 09:11] VITALS: BMI 27.8
[~2019-03-17] MED LIST changes: -OMEP-125 PO; +OMEP-126 PO
== END ==
LOC: LAB 15:10
PROVIDERS: ATTEND Otolaryngology
DX: Z98.890 Other specified postprocedural states (principal)
CPT/HCPCS: 36415; 84443

== ENCOUNTER → 2019-03-20 | Outpatient (CLI) | payer MEDICARE, OTHER ==
[2018-11-10 09:11] VITALS: BMI 27.8
[~2019-03-20] MED LIST changes: +MEDR2.5T29 PO
--- NOTE | 2019-03-20 16:29 | RADIOLOGY IMAGING REPORT ---
FACILITY: [facility] PATIENT NAME: Trang Hitchcock : 1945 MR: [id number] V: [id number] EXAM DATE: ORDERING PHYSICIAN: LOREN MACK TECHNOLOGIST: Location: [facility] Patient: Trang Hitchcock : 1945 Visit/Account:[id number] Date of Sevice: 03/20/2019 Clinical history: Postmenopausal, osteoporosis screening. Comparison: 01/22/2014. LUMBAR SPINE: The bone mineral density (BMD) measured from L1-L4 correlates with a Z-score of 1.8 and a T-score of 0.5 which is normal as defined by the World Health Organization. The corresponding risk of fracture in the lumbar spine is not increased compared with a young adult reference population. This value person s increased by 6.8 % since the prior study. More than 5% change is considered significant. HIP: Bone mineral density (BMD) measured in the left Total Hip region correlates with a Z-score of 0.8 and a T-score of -0.6 which is normal as defined by the World Health Organization. The corresponding ri sk of fracture in the hip is increased 1-2 times compared with a young adult reference population. T his value has decreased by 3.0 % since the prior study. More than 5% change is considered significan t. Bone mineral density (BMD) measured in the left femoral neck correlates with a Z-score of 0.6 and a T -score of -1.0 which is osteopenia as defined by the World Health Organization. The corresponding ri sk of fracture in the hip is increased 2 times compared with a young adult reference population. Thi s value has increased by 5.0 % since the prior study. More than 5% change is considered significant. Bone mineral density (BMD) measured in the left Femoral Neck region measures 0.902 g/cm2. IMPRESSION: 1. Lumbar spine: Normal. There has been significant increase in the bone mineral density since the previous exam. 2. Left total hip: Normal. There has been no significant change in the bone mineral density since th e previous exam. 3. Left Femoral Neck: Osteopenia. There has been borderline significant increase in the bone mineral density since the previous exam 4. Left femoral neck bone mineral density: 0.902 g/cm2. The next DEXA scan of this patient should include the following sites: Lumbar spine and left hip. FRAX(R) WHO Fracture Risk Assessment Tool link: http://www.shef.ac.uk/FRAX/tool.jsp?locationValue=9 PLEASE NOTE: 1) The World Health Organization defines low BMD as follows: T-score Normal > -1 Osteopenia < -1 and > -2.5 Osteoporosis < -2.5 without fractures Established osteoporosis < -2.5 with fractures 2) In general, you may wish to consider: Diagnosis Treatment Follow-up DEXA Normal BMD Prevention 2-3 years Osteopenia Prevention/therapy 1-2 years Osteoporosis Therapy Yearly 3) Fracture risk estimated from the T-score is more accurate for vertebral fractures (often spontane ous) than for hip fractures Report Dictated By: Imelda Sanchez MD at 03/20/2019 4:17 PM Report E-Signed By: Imelda Sanchez MD at 03/20/2019 4:22 PM WSN:[id number]
--- NOTE | 2019-03-21 09:33 | RADIOLOGY IMAGING REPORT ---
FACILITY: [facility] - [place] PATIENT NAME: LAMONT TEJEDA : [id number] MR: [id number] V: [id number] EXAM DATE: ORDERING PHYSICIAN: LOREN MACK TECHNOLOGIST: Stephanie Ontiveros PROCEDURE: BILATERAL DIGITAL SCREENING MAMMOGRAM WITH CAD ASSISTED INTERPRETATION & 3D TOMOSYNTHESIS REASON FOR STUDY: Screening FAMILY HISTORY OF BREAST CANCER: None BREAST PROCEDURES/TREATMENTS: Benign surgical biopsy Left breast 1967 COMPARISON: Mammograms 12/10/15, 12/30/13, 01/22/14, 04/18/12, 04/15/12 & Right breast Ultrasound 01/10/16 VIEWS OBTAINED: Bilateral 2D & 3D full field CC & MLO projections BREAST DENSITY: There are scattered areas of fibroglandular density throughout the breasts. MAMMOGRAM FINDINGS: There are numerous round circumscribed masses seen throughout the Right breast. Numerous cysts have been previously demonstrated in the Right breast. However, some of these masses appear new & larger, therefore, a follow up Right breast Ultrasound is recommended. There are numerous circumscribed masses seen throughout the Left breast no appreciated on the prior mammograms. These may simply represent cysts, although Left breast Ultrasound is also recommended. FINDINGS: DIAGNOSTIC CATEGORY 0--INCOMPLETE: NEED ADDITIONAL IMAGING EVALUATION. RECOMMENDATIONS: ULTRASOUND: BILATERAL BREASTS. IMPRESSION: BIRADS 0: Incomplete, need additional imaging evaluation Bilateral breast Ultrasound recommended as described above. Dictated by: Michelle Rodriguez M.D. on 03/20/2019 at 17:31 Transcribed by: LAURYN on 03/21/2019 at 8:17 Approved by: Michelle Rodriguez M.D. on 03/21/2019 at 9:28 [facility]
== END ==
LOC: MAMO 00:50
PROVIDERS: ATTEND Nurse Practitioner Family
DX: Z12.31 Encounter for screening mammogram for malignant neoplasm of breast (principal); Z13.820 Encounter for screening for osteoporosis; M85.852 Other specified disorders of bone density and structure, left thigh
CPT/HCPCS: 77063; 77067; 77080

== ENCOUNTER → 2019-04-03 | Outpatient (CLI) | payer MEDICARE, OTHER ==
[2018-11-10 09:11] VITALS: BMI 27.8
--- NOTE | 2019-04-08 10:56 | RADIOLOGY IMAGING REPORT ---
FACILITY: [facility] PATIENT NAME: LAMONT TEJEDA : [id number] MR: [id number] V: [id number] EXAM DATE: ORDERING PHYSICIAN: NING CASTILLO TECHNOLOGIST: Manuel Avila RDMS, RDCS PROCEDURE:US BILATERAL BREAST COMPARISON:Prior mammogram 03/20/19, Prior Right breast Ultrasound 01/10/16 & bilateral breast Ultrasound 07/23/09 AREA SCANNED: Both breasts entirely INDICATIONS:Abnormal mammogram FINDINGS: RIGHT BREAST: There are numerous cysts seen throughout the Right breast. The 2 largest are in the 9 o'clock position measuring 2.3cm in diameter & the 10 o'clock position measuring 3.9cm in diameter. LEFT BREAST: The largest is in the 6 o'clock position measuring 3cm in diameter. DIAGNOSTIC CATEGORY 2--BENIGN FINDING. RECOMMENDATIONS: ROUTINE MAMMOGRAM AND CLINICAL EVALUATION. IMPRESSION: BIRADS 2: Benign finding. There are numerous cysts seen throughout both breasts which would account for the mammographic findings. Dictated by: Michelle Rodriguez M.D. on 04/03/2019 at 13:20 Transcribed by: LAURYN on 04/08/2019 at 10:31 Approved by: Michelle Rodriguez M.D. on 04/08/2019 at 10:50 [facility]
== END ==
LOC: US 02:06
PROVIDERS: ATTEND Obstetrics & Gynecology
DX: R92.8 Other abnormal and inconclusive findings on diagnostic imaging of breast (principal)